=== PATIENT | female | born 1945 | race Caucasian/White ===

== ENCOUNTER → 2016-04-29 | Outpatient (CLI) | payer MEDICARE ==
[~2016-04-29] MED LIST: ASPI1TAB PO; ASPI81TA51 PO; AUGM500T34 PO; BENA25CA2 PO; BUDE3CAP PO; CALCTAB93 PO; CARV3.12 PO; CIPR500T3 PO; CO Q 10 PO; CO Q1CAP PO; COLA100C PO; CORE25TA PO; FISH1000 PO; FLAG500T PO; FLAX1000 PO; GLUC1CAP9 PO; IBUP600T26 OR; KETO10TAB PO; LIDO1DIS2 TD; LORTTAB5 PO; MELO7.5T6 PO; META48.54 PO; MULTLIQ7 PO; NORCOTAB PO; OMEG100011 PO; ONDA1TAB15 PO; POTA10CA PO; PRED25TA PO; PROBCAP14 PO; TUMS500C PO; VICO5TAB PO; VITA50003 PO; VITMTA PO
[2016-04-29 13:18] LABS: MEAN CORPUSCULAR HEMOGLOBIN 29.4 pg (27.0-33.0); MEAN CORPUSCULAR HGB CONC 32.7 g/dl (32.0-36.5); MEAN CORPUSCULAR VOLUME 89.9 fl (80.0-96.0); RED CELL DISTRIBUTION WIDTH 14.9 % (11.5-14.5); WHITE BLOOD COUNT 5.8 K/mm3 (4.0-10.0)
== END ==
LOC: M LAB 12:15
PROVIDERS: ATTEND Internal Medicine Gastroenterology
DX: R19.7 Diarrhea, unspecified (principal); K92.1 Melena

== ENCOUNTER → 2016-05-03 | Outpatient (CLI) | payer MEDICARE ==
[2016-05-03 13:15] LABS: MEAN CORPUSCULAR HEMOGLOBIN 29.4 pg (27.0-33.0); MEAN CORPUSCULAR HGB CONC 32.4 g/dl (32.0-36.5); RED CELL DISTRIBUTION WIDTH 15.8 % (11.5-14.5); WHITE BLOOD COUNT 4.8 K/mm3 (4.0-10.0)
== END ==
LOC: M LAB 12:40
PROVIDERS: ATTEND Internal Medicine Gastroenterology
DX: K92.1 Melena (principal); K52.9 Noninfective gastroenteritis and colitis, unspecified; D64.9 Anemia, unspecified

== ENCOUNTER → 2016-05-19 | Outpatient (REF) | payer MEDICARE ==
[2016-05-19 18:38] LABS: BASO % 0.4 % (0.0-1.0); EOS # 0.1 K/mm3 (0.0-0.50); EOS % 1.6 % (0.0-3.0); LARGE UNSTAINED CELL # 0.2 K/mm3 (0.0-0.4); LARGE UNSTAINED CELL % 2.7 % (0.0-4.0); LYMPH # 1.4 K/mm3 (1.5-4.5); LYMPH % 18.6 % (24.0-44.0); MEAN CORPUSCULAR HEMOGLOBIN 28.7 pg (27.0-33.0); MEAN CORPUSCULAR HGB CONC 31.7 g/dl (32.0-36.5); MEAN CORPUSCULAR VOLUME 90.5 fl (80.0-96.0); MONO # 0.3 K/mm3 (0.0-0.8); MONO % 4.1 % (0.0-5.0); NEUTROPHILS # 5.6 K/mm3 (1.8-7.7); NEUTROPHILS % 72.7 % (36.0-66.0); PLATELET COUNT, AUTOMATED 308 k/mm3 (150-450); RED CELL DISTRIBUTION WIDTH 14.6 % (11.5-14.5); WHITE BLOOD COUNT 7.8 K/mm3 (4.0-10.0)
[2016-05-19 18:50] LABS: ALBUMIN 3.7 GM/DL (3.2-5.2); ALBUMIN/GLOBULIN RATIO 0.97 (1.00-1.93); ALKALINE PHOSPHATASE 84 U/L (45-117); ALT/SGPT 18 U/L (12-78); ANION GAP 9 MEQ/L (8-16); AST/SGOT 16 U/L (15-37); BILIRUBIN,TOTAL 0.2 MG/DL (0.2-1.0); BLOOD UREA NITROGEN 13 MG/DL (7-18); CALCIUM LEVEL 8.6 MG/DL (8.8-10.2); CARBON DIOXIDE LEVEL 26 MEQ/L (21-32); CHLORIDE LEVEL 106 MEQ/L (98-107); CREATININE FOR GFR 0.82 MG/DL (0.55-1.02); FERRITIN 31 NG/ML (8-252); GLOMERULAR FILTRATION RATE > 60.0 (>45); GLUCOSE, FASTING 94 MG/DL (80-110); MAGNESIUM LEVEL 1.9 MG/DL (1.8-2.4); PERCENT SATURATION 7.8 % (13.2-37.4); POTASSIUM SERUM 4.2 MEQ/L (3.5-5.1); SODIUM LEVEL 141 MEQ/L (136-145); TOTAL IRON BINDING CAPACITY 361 UG/DL (250-450); TOTAL PROTEIN 7.5 GM/DL (6.4-8.2)
== END | disposition home or self-care (01) ==
LOC: M SFHCPLAZ 15:07
PROVIDERS: ATTEND Family Medicine
DX: D50.0 Iron deficiency anemia secondary to blood loss (chronic) (principal); I48.0 Paroxysmal atrial fibrillation
CPT/HCPCS: 36415; 80053; 82728; 83550; 83735; 85025; G0463

== ENCOUNTER → 2016-06-03 | Outpatient (CLI) | payer MEDICARE ==
--- NOTE | 2016-06-03 13:50 | REPMRS ---
Patient History The patient states she has not had a clinical breast exam in over a year. Patient has history of cervical cancer at age 33. No known family history of cancer. Digital Woman Screen Mammo: June 03, 2016 - Exam #: [id number] Bilateral CC and MLO view(s) were taken. Technologist: Sharda aVrgas, Technologist Prior study comparison: May 19, 2015, digital woman screen mammo performed at [facility] to [facility]. May 12, 2014, digital woman screen mammo performed at [facility] to [facility]. May 09, 2013, digital woman screen mammo performed at [facility] to [facility]. FINDINGS: There are scattered fibroglandular densities. There has been no change in the appearance of the mammogram from the prior studies. There is a mild amount of scattered fibroglandular density which is fairly symmetric. There is no interval development of dominant mass, architectural distortion, or clustered microcalcification suggestive of malignancy. ASSESSMENT: BI-RADS/ACR category 1 mammogram. Negative. Recommendation Routine screening mammogram in 1 year (for women over age 40). This mammogram was interpreted with the aid of an FDA-approved computer-aided dectection system. Electronically Signed By: Cliff Interiano MD 06/03/16 1695
== END ==
LOC: M WHC 12:39
PROVIDERS: ATTEND Family Medicine
DX: Z12.31 Encounter for screening mammogram for malignant neoplasm of breast (principal)

== ENCOUNTER → 2016-10-03 | Outpatient (REF) | payer MEDICARE ==
[~2016-10-03] MED LIST changes: +CO Q100C PO; -CO Q1CAP PO; -COLA100C PO; +COLA100C5 PO; -MELO7.5T6 PO; +MELO7.5T7 PO; -ONDA1TAB15 PO; +ONDA4TAB5 PO; +VITA1CAP40 PO; -VITA50003 PO
[2016-10-03 12:02] LABS: EOS # 0.1 K/mm3 (0.0-0.50); EOS % 1.5 % (0.0-3.0); LARGE UNSTAINED CELL # 0.1 K/mm3 (0.0-0.4); LARGE UNSTAINED CELL % 2.9 % (0.0-4.0); LYMPH # 1.4 K/mm3 (1.5-4.5); LYMPH % 27.9 % (24.0-44.0); MEAN CORPUSCULAR HEMOGLOBIN 31.8 pg (27.0-33.0); MEAN CORPUSCULAR VOLUME 93.5 fl (80.0-96.0); MONO # 0.3 K/mm3 (0.0-0.8); MONO % 5.8 % (0.0-5.0); NEUTROPHILS % 60.8 % (36.0-66.0); PLATELET COUNT, AUTOMATED 224 k/mm3 (150-450); RED CELL DISTRIBUTION WIDTH 12.8 % (11.5-14.5)
[2016-10-03 12:41] LABS: ALBUMIN 3.7 GM/DL (3.2-5.2); ALBUMIN/GLOBULIN RATIO 0.95 (1.00-1.93); ALKALINE PHOSPHATASE 78 U/L (45-117); ALT/SGPT 24 U/L (12-78); ANION GAP 6 MEQ/L (8-16); AST/SGOT 15 U/L (15-37); BILIRUBIN,TOTAL 0.4 MG/DL (0.2-1.0); BLOOD UREA NITROGEN 13 MG/DL (7-18); CALCIUM LEVEL 9.3 MG/DL (8.8-10.2); CARBON DIOXIDE LEVEL 27 MEQ/L (21-32); CHLORIDE LEVEL 107 MEQ/L (98-107); FERRITIN 130 NG/ML (8-252); GLOMERULAR FILTRATION RATE > 60.0 (>45); GLUCOSE, FASTING 95 MG/DL (80-110); MAGNESIUM LEVEL 1.9 MG/DL (1.8-2.4); PERCENT SATURATION 24.4 % (13.2-37.4); POTASSIUM SERUM 4.5 MEQ/L (3.5-5.1); SODIUM LEVEL 140 MEQ/L (136-145); TOTAL IRON BINDING CAPACITY 320 UG/DL (250-450); TOTAL PROTEIN 7.6 GM/DL (6.4-8.2)
== END ==
LOC: M SFHCPLAZ 10:34
PROVIDERS: ATTEND Family Medicine
DX: D50.0 Iron deficiency anemia secondary to blood loss (chronic) (principal); E55.9 Vitamin D deficiency, unspecified

== ENCOUNTER → 2017-06-01 | Outpatient (REF) | payer MEDICARE ==
[2017-06-01 12:59] LABS: BASO % 0.8 % (0.0-1.0); EOS # 0.1 10^3/uL (0.0-0.50); EOS % 2.3 % (0.0-3.0); HEMATOCRIT 38.6 % (36.0-47.0); HEMOGLOBIN 13.1 g/dl (12.0-16.0); LYMPH # 0.8 10^3/uL (1.5-4.5); LYMPH % 20.5 % (24.0-44.0); MEAN CORPUSCULAR HEMOGLOBIN 30.8 pg (27.0-33.0); MEAN CORPUSCULAR HGB CONC 33.9 g/dl (32.0-36.5); MEAN CORPUSCULAR VOLUME 90.8 fl (80.0-96.0); MONO # 0.5 10^3/uL (0.0-0.8); MONO % 11.5 % (0.0-5.0); NEUTROPHILS # 2.6 10^3/uL (1.8-7.7); NEUTROPHILS % 64.9 % (36.0-66.0); PLATELET COUNT, AUTOMATED 233 10^3/uL (150-450); RED BLOOD COUNT 4.25 10^6/uL (4.00-5.40); RED CELL DISTRIBUTION WIDTH 12.2 % (11.5-14.5)
[2017-06-01 13:19] LABS: ALBUMIN 3.7 GM/DL (3.2-5.2); ALBUMIN/GLOBULIN RATIO 1.16 (1.00-1.93); ALKALINE PHOSPHATASE 80 U/L (45-117); ALT/SGPT 27 U/L (12-78); ANION GAP 9 MEQ/L (8-16); AST/SGOT 16 U/L (7-37); BILIRUBIN,TOTAL 0.4 MG/DL (0.2-1.0); BLOOD UREA NITROGEN 13 MG/DL (7-18); CALCIUM LEVEL 8.4 MG/DL (8.8-10.2); CARBON DIOXIDE LEVEL 23 MEQ/L (21-32); CHLORIDE LEVEL 109 MEQ/L (98-107); CREATININE FOR GFR 0.74 MG/DL (0.55-1.30); FERRITIN 156 NG/ML (8-252); GLOMERULAR FILTRATION RATE > 60.0 (>45); GLUCOSE, FASTING 89 MG/DL (70-100); IRON (FE) 109 UG/DL (50-170); MAGNESIUM LEVEL 1.8 MG/DL (1.8-2.4); POTASSIUM SERUM 4.1 MEQ/L (3.5-5.1); SODIUM LEVEL 141 MEQ/L (136-145); TOTAL IRON BINDING CAPACITY 311 UG/DL (250-450); TOTAL PROTEIN 6.9 GM/DL (6.4-8.2)
[2017-06-01 13:25] LABS: PTH INTACT 63.7 PG/ML (18.5-88.0); TOTAL 25(OH) VITAMIN D 35.7 NG/ML (30.0-100.0)
== END ==
LOC: M SFHCPLAZ 10:39
DX: D50.0 Iron deficiency anemia secondary to blood loss (chronic) (principal); I48.0 Paroxysmal atrial fibrillation; E55.9 Vitamin D deficiency, unspecified
CPT/HCPCS: 83550

== ENCOUNTER → 2017-06-05 | Outpatient (CLI) | payer MEDICARE | LOC: M WHC 10:45 | DX: Z12.31 Encounter for screening mammogram for malignant neoplasm of breast (principal) | CPT/HCPCS: 77067 ==

== ENCOUNTER → 2017-08-17 | Outpatient (CLI) | payer MEDICARE ==
[2017-08-17 13:21] LABS: HEMATOCRIT 39.5 % (36.0-47.0); HEMOGLOBIN 13.5 g/dl (12.0-15.5); MEAN CORPUSCULAR HEMOGLOBIN 31.4 pg (27.0-33.0); MEAN CORPUSCULAR HGB CONC 34.2 g/dl (32.0-36.5); MEAN CORPUSCULAR VOLUME 91.9 fl (80.0-96.0); PLATELET COUNT, AUTOMATED 233 10^3/uL (150-450); RED CELL DISTRIBUTION WIDTH 12.2 % (11.5-14.5); WHITE BLOOD COUNT 4.3 10^3/uL (4.0-10.0)
[2017-08-17 14:16] LABS: C REACTIVE PROTEIN QUANTITATIV 0.54 MG/DL (0.00-0.30)
[2017-08-17 14:19] LABS: ERYTHROCYTE SEDIMENTATION RATE 21 mm/hr (0-30)
== END ==
LOC: M LAB 12:50
DX: K52.9 Noninfective gastroenteritis and colitis, unspecified (principal)
CPT/HCPCS: 86140

== ENCOUNTER → 2017-09-06 | Outpatient (CLI) | payer MEDICARE ==
[2017-09-06 10:43] LABS: HEMATOCRIT 39.1 % (36.0-47.0); HEMOGLOBIN 13.3 g/dl (12.0-15.5); MEAN CORPUSCULAR HEMOGLOBIN 31.1 pg (27.0-33.0); MEAN CORPUSCULAR VOLUME 91.4 fl (80.0-96.0); PLATELET COUNT, AUTOMATED 213 10^3/uL (150-450); RED BLOOD COUNT 4.28 10^6/uL (4.00-5.40); RED CELL DISTRIBUTION WIDTH 12.2 % (11.5-14.5); WHITE BLOOD COUNT 4.1 10^3/uL (4.0-10.0)
[2017-09-06 11:03] LABS: ALBUMIN 3.9 GM/DL (3.2-5.2); ALBUMIN/GLOBULIN RATIO 1.15 (1.00-1.93); ALKALINE PHOSPHATASE 83 U/L (45-117); ALT/SGPT 23 U/L (12-78); ANION GAP 8 MEQ/L (8-16); AST/SGOT 16 U/L (7-37); BILIRUBIN,TOTAL 0.3 MG/DL (0.2-1.0); BLOOD UREA NITROGEN 16 MG/DL (7-18); CALCIUM LEVEL 8.2 MG/DL (8.8-10.2); CARBON DIOXIDE LEVEL 23 MEQ/L (21-32); CHLORIDE LEVEL 111 MEQ/L (98-107); CREATININE FOR GFR 0.66 MG/DL (0.55-1.30); GLOMERULAR FILTRATION RATE > 60.0 (>39); GLUCOSE, FASTING 97 MG/DL (70-100); POTASSIUM SERUM 4.2 MEQ/L (3.5-5.1); SODIUM LEVEL 142 MEQ/L (136-145); TOTAL PROTEIN 7.3 GM/DL (6.4-8.2)
[2017-09-06 11:05] LABS: INR 0.96; PROTHROMBIN TIME 12.9 SECONDS (12.4-14.5)
[2017-09-06 11:43] LABS: ERYTHROCYTE SEDIMENTATION RATE 19 mm/hr (0-30)
== END ==
LOC: M ADMPAT 09:08
DX: Z01.818 Encounter for other preprocedural examination (principal); M16.11 Unilateral primary osteoarthritis, right hip; Z79.899 Other long term (current) drug therapy
CPT/HCPCS: 71046

== ENCOUNTER 2017-09-25 05:46 | Inpatient (IN) | payer MEDICARE ==
[2017-09-25] MEDS: LR 1,000 ML IV ×4 (06:50→20:45)
[2017-09-25] MEDS ORDERED: PROPOFOL 200 MG/20 ML VIAL As Ordered (08:11)
[2017-09-25] MEDS ORDERED: BUPIVACAINE/DEXTROSE 0.75% 2 ML AMP As Ordered (08:11)
[2017-09-25] MEDS ORDERED: fentaNYL 100 MCG/2 ML INJECTION (J3010) As Ordered (08:11)
[2017-09-25] MEDS ORDERED: MIDAZOLAM INJ 2 MG/2 ML VIAL (J2250) As Ordered (08:11)
[2017-09-25] MEDS ORDERED: ONDANSETRON 4MG/2ML VIAL (J2405) As Ordered (08:13)
[2017-09-25] MEDS ORDERED: dexameTHASONE 4 MG/ML 1ML VIAL (J1100) As Ordered (08:13)
[2017-09-25] MEDS ORDERED: ePHEDrine SULFATE 25 MG/5 ML(5MG/ML) SYRINGE As Ordered (08:15)
[2017-09-25] MEDS: EPINEPHrine INJ 1 MG/ML 1ML AMP As Ordered (08:29)
[2017-09-25] MEDS: ceFAZolin 1GM INJ (J0690 PER 500MG) As Ordered (08:29)
[2017-09-25] MEDS: TRANEXAMIC ACID 100 MG/ML 10ML VIAL As Ordered (08:30)
[2017-09-25] MEDS ORDERED: MORPHINE 1MG/ML IN 0.9% NACL 100ML IV BAG As Ordered (09:31)
[2017-09-25] MEDS: PERCOCET 5MG/325MG TAB PO ×4 (09:40→20:37)
[2017-09-25] MEDS ORDERED: NALBUPHINE HCL 10 MG/ML AMP (J2300) IV (09:45)
[2017-09-25] MEDS ORDERED: ONDANSETRON 4MG/2ML VIAL (J2405) IV ×2 (09:45)
[2017-09-25] MEDS ORDERED: ACETAMINOPHEN TAB 650MG DOSE (2X325MG) PO (09:45)
[2017-09-25] MEDS ORDERED: diphenhydrAMINE INJ 50MG/ML VIAL (J1200) IV (09:45)
[2017-09-25] MEDS ORDERED: NALOXONE INJ 0.4 MG/1 ML VIAL (J2310) IV (09:45)
[2017-09-25] MEDS ORDERED: HYDROMORPHONE HCL 0.5 MG/ 0.5 ML SYRINGE (J1170 PER 1) IV (09:45)
[2017-09-25] MEDS ORDERED: MORPHINE 1MG/ML IN 0.9% NACL 100ML IV BAG IV (09:45)
[2017-09-25] MEDS ORDERED: EPIDURAL/PCA KEYS XX (09:45)
[2017-09-25] MEDS ORDERED: FLEET ENEMA PR (09:45)
[2017-09-25] MEDS: fentaNYL 100 MCG/2 ML INJECTION (J3010) IV ×4 (10:20→10:40)
[2017-09-25] MEDS: ONDANSETRON 4MG/2ML VIAL (J2405) IV ×3 (12:46→21:20)
[2017-09-25] MEDS ORDERED: PERCOCET 5MG/325MG TAB PO (15:00)
[2017-09-25 17:56] LABS: BEDSIDE GLUCOSE 149 MG/DL (83-110)
[2017-09-25] MEDS: CARVedilol 3.125 MG TAB PO (21:13)
[2017-09-26] MEDS: PERCOCET 5MG/325MG TAB PO (00:37)
[2017-09-26] MEDS: ONDANSETRON 4MG/2ML VIAL (J2405) IV (02:06)
[2017-09-26] MEDS: traMADol 50 MG TAB PO ×3 (06:39→20:20)
[2017-09-26 07:04] LABS: HEMATOCRIT 32.7 % (36.0-47.0); HEMOGLOBIN 11.2 g/dl (12.0-15.5); MEAN CORPUSCULAR HEMOGLOBIN 30.9 pg (27.0-33.0); MEAN CORPUSCULAR HGB CONC 34.3 g/dl (32.0-36.5); MEAN CORPUSCULAR VOLUME 90.1 fl (80.0-96.0); PLATELET COUNT, AUTOMATED 187 10^3/uL (150-450); RED BLOOD COUNT 3.63 10^6/uL (4.00-5.40); WHITE BLOOD COUNT 5.5 10^3/uL (4.0-10.0)
[2017-09-26] MEDS: RIVAROXABAN 10 MG TAB (XARELTO) PO (08:50)
[2017-09-26] MEDS: CARVedilol 3.125 MG TAB PO ×2 (08:53→20:18)
[2017-09-26] MEDS: MOM 30ML SUSPENSION UDC PO (09:00)
[2017-09-26] MEDS: SENOKOT S TAB PO ×2 (09:00→20:18)
[2017-09-26] MEDS: MIRALAX *UNIT DOSE* 17GM PACKET PO (09:00)
[2017-09-26] MEDS: ACETAMINOPHEN 500 MG TAB PO (09:49)
[2017-09-26] MEDS: ONDANSETRON 4 MG TAB (S0181) PO (13:43)
[2017-09-27] MEDS: traMADol 50 MG TAB PO ×2 (02:49→10:02)
[2017-09-27 07:15] LABS: HEMATOCRIT 31.4 % (36.0-47.0); HEMOGLOBIN 10.7 g/dl (12.0-15.5); MEAN CORPUSCULAR HEMOGLOBIN 31.1 pg (27.0-33.0); MEAN CORPUSCULAR HGB CONC 34.1 g/dl (32.0-36.5); MEAN CORPUSCULAR VOLUME 91.3 fl (80.0-96.0); PLATELET COUNT, AUTOMATED 169 10^3/uL (150-450); RED BLOOD COUNT 3.44 10^6/uL (4.00-5.40); RED CELL DISTRIBUTION WIDTH 12.1 % (11.5-14.5); WHITE BLOOD COUNT 5.4 10^3/uL (4.0-10.0)
[2017-09-27] MEDS: RIVAROXABAN 10 MG TAB (XARELTO) PO (08:45)
[2017-09-27] MEDS: MIRALAX *UNIT DOSE* 17GM PACKET PO (08:48)
[2017-09-27] MEDS: MOM 30ML SUSPENSION UDC PO (08:48)
[2017-09-27] MEDS: CARVedilol 3.125 MG TAB PO (08:48)
[2017-09-27] MEDS: SENOKOT S TAB PO (08:49)
== END 2017-09-27 14:45 | disposition home or self-care (01) | DRG 470 ==
LOC: M OR 05:46 → M MS5PR 12:00
PROVIDERS: Orthopaedic Surgery
PROC: 0SR902A Replacement of Right Hip Joint with Metal on Polyethylene Synthetic Substitute, Uncemented, Open Approach (ICD-10-PCS; principal; 2017-09-25 07:30)
DX: M16.11 Unilateral primary osteoarthritis, right hip (principal); K51.90 Ulcerative colitis, unspecified, without complications; I10 Essential (primary) hypertension; E78.5 Hyperlipidemia, unspecified; I48.0 Paroxysmal atrial fibrillation; Z98.49 Cataract extraction status, unspecified eye; Z87.891 Personal history of nicotine dependence; Z79.899 Other long term (current) drug therapy

== ENCOUNTER → 2017-10-12 | Outpatient (REF) | payer MEDICARE ==
[2017-10-12 13:19] LABS: BASO % 0.4 % (0.0-1.0); EOS # 0.1 10^3/uL (0.0-0.50); EOS % 1.8 % (0.0-3.0); HEMATOCRIT 34.9 % (36.0-47.0); HEMOGLOBIN 11.4 g/dl (12.0-15.5); IMMATURE GRANULOCYTE % 0.4 % (0-3.0); LYMPH # 1.2 10^3/uL (1.5-4.5); LYMPH % 21.8 % (24.0-44.0); MEAN CORPUSCULAR HEMOGLOBIN 30.9 pg (27.0-33.0); MEAN CORPUSCULAR HGB CONC 32.7 g/dl (32.0-36.5); MEAN CORPUSCULAR VOLUME 94.6 fl (80.0-96.0); MONO # 0.5 10^3/uL (0.0-0.8); MONO % 9.2 % (0.0-5.0); NEUTROPHILS # 3.7 10^3/uL (1.8-7.7); NEUTROPHILS % 66.4 % (36.0-66.0); PLATELET COUNT, AUTOMATED 439 10^3/uL (150-450); RED BLOOD COUNT 3.69 10^6/uL (4.00-5.40); RETIC HEMOGLOBIN EQUIVALENT 34.9 pg (24-36); RETICULOCYTE # 94.8 10^9/L (17-77); RETICULOCYTE % 2.6 % (0.5-1.5); WHITE BLOOD COUNT 5.6 10^3/uL (4.0-10.0)
[2017-10-12 14:12] LABS: ALBUMIN 3.3 GM/DL (3.2-5.2); ALKALINE PHOSPHATASE 94 U/L (45-117); ALT/SGPT 18 U/L (12-78); ANION GAP 8 MEQ/L (8-16); AST/SGOT 15 U/L (7-37); BILIRUBIN,TOTAL 0.3 MG/DL (0.2-1.0); BLOOD UREA NITROGEN 10 MG/DL (7-18); C REACTIVE PROTEIN QUANTITATIV 2.73 MG/DL (0.00-0.30); CALCIUM LEVEL 8.5 MG/DL (8.8-10.2); CARBON DIOXIDE LEVEL 27 MEQ/L (21-32); CHLORIDE LEVEL 107 MEQ/L (98-107); CHOLESTEROL LEVEL 168 MG/DL (<200); CREATININE FOR GFR 0.58 MG/DL (0.55-1.30); FREE T4 1.13 NG/DL (0.76-1.46); GLOMERULAR FILTRATION RATE > 60.0 (>39); GLUCOSE, FASTING 85 MG/DL (70-100); HDL CHOLESTEROL 60 MG/DL (>40); LDL CHOLESTEROL 75.6 MG/DL (<100); MAGNESIUM LEVEL 1.9 MG/DL (1.8-2.4); NON-HDL-C 108 MG/DL; POTASSIUM SERUM 4.3 MEQ/L (3.5-5.1); SODIUM LEVEL 142 MEQ/L (136-145); TOTAL PROTEIN 6.6 GM/DL (6.4-8.2); TRIGLYCERIDES LEVEL 162 MG/DL (<150)
[2017-10-12 14:17] LABS: PTH INTACT 65.7 PG/ML (18.5-88.0); TOTAL 25(OH) VITAMIN D 50.3 NG/ML (30.0-100.0)
== END ==
LOC: M SFHCPLAZ 11:05
DX: D50.0 Iron deficiency anemia secondary to blood loss (chronic) (principal); E55.9 Vitamin D deficiency, unspecified; I10 Essential (primary) hypertension
CPT/HCPCS: 83735

== ENCOUNTER → 2018-04-09 | Outpatient (REF) | payer MEDICARE ==
[~2018-04-09] MED LIST changes: +APRI0.37 PO; +CELE1CAP4 PO; -FLAX1000 PO; +FLAX10008 PO; +HYDR-3713 PO; +IRONCAP2 PO; +KLOR10TA76 PO; +OMEP40CA2 PO; -POTA10CA PO; +POTA20TA4 PO; +TRAM50TA2 PO; -VITA1CAP40 PO; +VITA50005 PO; +XARE10TA PO
[2018-04-09 16:01] LABS: ALBUMIN 3.9 GM/DL (3.2-5.2); ALT/SGPT 22 U/L (12-78); BILIRUBIN,TOTAL 0.3 MG/DL (0.2-1.0); BLOOD UREA NITROGEN 20 MG/DL (7-18); CALCIUM LEVEL 8.8 MG/DL (8.8-10.2); CARBON DIOXIDE LEVEL 25 MEQ/L (21-32); CHLORIDE LEVEL 107 MEQ/L (98-107); CREATININE FOR GFR 0.69 MG/DL (0.55-1.30); GLOMERULAR FILTRATION RATE > 60.0 (>39); GLUCOSE, FASTING 73 MG/DL (70-100); MAGNESIUM LEVEL 1.9 MG/DL (1.8-2.4); POTASSIUM SERUM 4.3 MEQ/L (3.5-5.1); SODIUM LEVEL 140 MEQ/L (136-145); TOTAL PROTEIN 7.3 GM/DL (6.4-8.2)
[2018-04-09 16:03] LABS: BASO % 0.4 % (0.0-1.0); EOS # 0.1 10^3/uL (0.0-0.50); EOS % 2.3 % (0.0-3.0); HEMATOCRIT 41.3 % (36.0-47.0); HEMOGLOBIN 13.6 g/dl (12.0-15.5); LYMPH # 1.2 10^3/uL (1.5-4.5); LYMPH % 22.6 % (24.0-44.0); MEAN CORPUSCULAR HEMOGLOBIN 31.6 pg (27.0-33.0); MEAN CORPUSCULAR HGB CONC 32.9 g/dl (32.0-36.5); MEAN CORPUSCULAR VOLUME 95.8 fl (80.0-96.0); MONO # 0.4 10^3/uL (0.0-0.8); MONO % 8.2 % (0.0-5.0); NEUTROPHILS # 3.5 10^3/uL (1.8-7.7); NEUTROPHILS % 66.3 % (36.0-66.0); PLATELET COUNT, AUTOMATED 236 10^3/uL (150-450); RED BLOOD COUNT 4.31 10^6/uL (4.00-5.40); WHITE BLOOD COUNT 5.2 10^3/uL (4.0-10.0)
[2018-04-09 16:18] LABS: HEMOGLOBIN A1c 5.1 %
== END ==
LOC: M SFHCPLAZ 12:45
PROVIDERS: ATTEND Family Medicine
DX: D50.0 Iron deficiency anemia secondary to blood loss (chronic) (principal); I10 Essential (primary) hypertension; Z79.899 Other long term (current) drug therapy

== ENCOUNTER → 2018-05-23 | Outpatient (CLI) | payer MEDICARE ==
[2018-05-23 09:37] LABS: C REACTIVE PROTEIN QUANTITATIV 0.54 MG/DL (0.00-0.30); MAGNESIUM LEVEL 2.1 MG/DL (1.8-2.4)
== END ==
LOC: M LAB 08:56
PROVIDERS: ATTEND Physician Assistant
DX: K21.9 Gastro-esophageal reflux disease without esophagitis (principal); K52.9 Noninfective gastroenteritis and colitis, unspecified; E55.9 Vitamin D deficiency, unspecified

== ENCOUNTER → 2018-06-15 | Outpatient (CLI) | payer MEDICARE ==
--- NOTE | 2018-06-15 12:47 | REP ---
DIAGNOSTIC MAMMOGRAM RIGHT BREAST: Multiple magnification views of the right breast are performed. There are multiple pleomorphic microcalcifications of varying sizes and shapes in the posterolateral right breast which are increased since prior studies. These are in a somewhat linear configuration. These appear somewhat suspicious. I would recommend stereotactic biopsy. IMPRESSION: ACR 4 suspicious. Increased pleomorphic microcalcifications clustered in a somewhat linear fashion in the posterolateral right breast. Stereotactic biopsy is recommended. This mammogram was interpreted with the aid of an FDA-approved computer-aided detection system. A. Negative x-ray reports should not delay biopsy if a dominant or clinically suspicious mass is present. B. Four to eight percent of cancers are not identified by x-ray. C. Adenosis and dense breasts may obscure an underlying neoplasm. The patient letter being requested is M4. Electronically Signed by Campos Redmond MD 06/15/2018 03:37 P
== END ==
LOC: M RAD 11:26
PROVIDERS: ATTEND Family Medicine
DX: Z12.31 Encounter for screening mammogram for malignant neoplasm of breast (principal); R92.0 Mammographic microcalcification found on diagnostic imaging of breast

== ENCOUNTER → 2018-06-19 | Outpatient (REF) | payer MEDICARE ==
[2018-06-19 12:50] LABS: ALBUMIN 4.1 GM/DL (3.2-5.2); ALT/SGPT 20 U/L (12-78); BILIRUBIN,TOTAL 0.3 MG/DL (0.2-1.0); BLOOD UREA NITROGEN 15 MG/DL (7-18); CALCIUM LEVEL 8.9 MG/DL (8.8-10.2); CARBON DIOXIDE LEVEL 22 MEQ/L (21-32); CHLORIDE LEVEL 109 MEQ/L (98-107); CREATININE FOR GFR 0.73 MG/DL (0.55-1.30); GLOMERULAR FILTRATION RATE > 60.0 (>39); GLUCOSE, FASTING 89 MG/DL (70-100); POTASSIUM SERUM 4.2 MEQ/L (3.5-5.1); SODIUM LEVEL 140 MEQ/L (136-145); TOTAL PROTEIN 7.3 GM/DL (6.4-8.2)
== END ==
LOC: M SFHCPLAZ 09:40
PROVIDERS: ATTEND Physician Assistant Medical
DX: R92.8 Other abnormal and inconclusive findings on diagnostic imaging of breast (principal)

== ENCOUNTER → 2018-09-04 | Outpatient (REF) | payer MEDICARE ==
[~2018-09-04] MED LIST changes: -ASPI1TAB PO; +ASPI81TA26 PO; +HYDR-3715 PO; -NORCOTAB PO
[2018-09-04 12:36] LABS: BASO % 0.9 % (0.0-1.0); EOS # 0.3 10^3/uL (0.0-0.50); EOS % 6.7 % (0.0-3.0); HEMATOCRIT 41.1 % (36.0-47.0); HEMOGLOBIN 13.7 g/dl (12.0-15.5); LYMPH # 1.2 10^3/uL (1.5-4.5); LYMPH % 25.7 % (24.0-44.0); MEAN CORPUSCULAR HEMOGLOBIN 30.8 pg (27.0-33.0); MEAN CORPUSCULAR HGB CONC 33.3 g/dl (32.0-36.5); MEAN CORPUSCULAR VOLUME 92.4 fl (80.0-96.0); MONO # 0.5 10^3/uL (0.0-0.8); MONO % 9.8 % (0.0-5.0); NEUTROPHILS # 2.6 10^3/uL (1.8-7.7); NEUTROPHILS % 56.7 % (36.0-66.0); PLATELET COUNT, AUTOMATED 243 10^3/uL (150-450); RED BLOOD COUNT 4.45 10^6/uL (4.00-5.40); WHITE BLOOD COUNT 4.6 10^3/uL (4.0-10.0)
[2018-09-04 13:13] LABS: ALBUMIN 3.8 GM/DL (3.2-5.2); ALT/SGPT 30 U/L (12-78); BILIRUBIN,TOTAL 0.3 MG/DL (0.2-1.0); BLOOD UREA NITROGEN 11 MG/DL (7-18); CARBON DIOXIDE LEVEL 22 MEQ/L (21-32); CHLORIDE LEVEL 109 MEQ/L (98-107); FREE T4 0.95 NG/DL (0.76-1.46); GLOMERULAR FILTRATION RATE > 60.0 (>39); GLUCOSE, FASTING 91 MG/DL (70-100); POTASSIUM SERUM 4.2 MEQ/L (3.5-5.1); SODIUM LEVEL 139 MEQ/L (136-145); TOTAL PROTEIN 7.4 GM/DL (6.4-8.2)
[2018-09-06 11:10] LABS: ALBUMIN 4.36 GM/DL (3.29-5.55); ALBUMIN % 58.9 % (55.8-66.1); ALPHA-1-GLOBULIN % 4.6 % (2.9-4.9); ALPHA-1-GLOBULINS 0.34 GM/DL (0.17-0.41); ALPHA-2-GLOBULINS 0.78 GM/DL (0.42-0.99); ALPHA-2-GLOBULINS % 10.6 % (7.1-11.8); BETA-1-GLOBULINS 0.44 GM/DL (0.28-0.60); BETA-2-GLOBULINS 0.38 GM/DL (0.19-0.55); BETA-2-GLOBULINS % 5.2 % (3.2-6.5); GAMMA GLOBULIN % 14.7 % (11.1-18.8); GAMMA GLOBULINS 1.09 GM/DL (0.65-1.58)
== END ==
LOC: M SFHCPLAZ 10:53
PROVIDERS: ATTEND Family Medicine
DX: D50.0 Iron deficiency anemia secondary to blood loss (chronic) (principal); I48.0 Paroxysmal atrial fibrillation; I10 Essential (primary) hypertension

== ENCOUNTER → 2018-10-02 | Outpatient (CLI) | payer MEDICARE ==
--- NOTE | 2018-10-02 15:16 | REP ---
Soft-tissue CT study of the neck with IV contrast: History: Right neck mass. Question branchial cleft cyst. CT contrast dose: 75 mL of Isovue 370. CT findings: A opaque BB is affixed to the skin at the site below the palpable lump. There is an oval-shaped heterogeneous dermal lesion lateral to the right parotid gland above the level of the BB marker. This measures 16 mm anteroposterior by 12 mm medial to lateral by 22 mm cranial to caudal. It is characterized by a central pattern of increased attenuation surrounded by a border of lower attenuation. Its internal margin appears to show enhancement and is slightly higher attenuation. The lesion is felt most compatible with a sebaceous cyst with central dense proteinaceous content. This is nonspecific. There is no evidence of adenopathy. Parotid gland itself is intact and symmetric. The left parotid is unremarkable. There is some accessory parotid salivary tissue lateral to each masseter muscle. The submandibular glands are normal and symmetric. Normal cervical lymph nodes are present. Thyroid lobes are unremarkable. No glottic or subglottic airway lesion is seen. Epiglottis is unremarkable. Floor of mouth and tonsillar and peritonsillar soft tissues are unremarkable. There is no evidence of significant paranasal sinus disease. There is however degenerative spondylosis with fairly well formed osteophytes at multiple cervical levels. No bony destructive lesion is appreciated. Impression: 22 mm dermal lesion in the right neck soft tissues lateral to the right parotid gland. This is nonspecific but felt to be most compatible with sebaceous cyst. Electronically Signed by Barrera Interiano MD 10/02/2018 04:55 P
== END ==
LOC: M RAD 13:35
PROVIDERS: ATTEND Otolaryngology
DX: R22.1 Localized swelling, mass and lump, neck (principal)

== ENCOUNTER → 2018-11-01 | Outpatient (CLI) | payer MEDICARE ==
[2018-11-01 13:51] LABS: BASO % 0.7 % (0.0-1.0); EOS # 0.2 10^3/uL (0.0-0.50); EOS % 2.5 % (0.0-3.0); HEMATOCRIT 42.2 % (36.0-47.0); HEMOGLOBIN 14.2 g/dl (12.0-15.5); LYMPH # 1.4 10^3/uL (1.5-4.5); LYMPH % 23.1 % (24.0-44.0); MEAN CORPUSCULAR HEMOGLOBIN 31.4 pg (27.0-33.0); MEAN CORPUSCULAR HGB CONC 33.6 g/dl (32.0-36.5); MEAN CORPUSCULAR VOLUME 93.4 fl (80.0-96.0); MONO # 0.5 10^3/uL (0.0-0.8); MONO % 8.9 % (0.0-5.0); NEUTROPHILS # 3.8 10^3/uL (1.8-7.7); NEUTROPHILS % 64.6 % (36.0-66.0); PLATELET COUNT, AUTOMATED 266 10^3/uL (150-450); RED BLOOD COUNT 4.52 10^6/uL (4.00-5.40); WHITE BLOOD COUNT 5.9 10^3/uL (4.0-10.0)
[2018-11-01 14:05] LABS: INR 1.03; PROTHROMBIN TIME 13.2 SECONDS (11.8-14.0)
[2018-11-01 14:06] LABS: PARTIAL THROMBOPLASTIN TIME 35.2 SECONDS (25.0-38.4)
[2018-11-01 14:20] LABS: ALBUMIN 4.3 GM/DL (3.2-5.2); ALT/SGPT 23 U/L (12-78); BILIRUBIN,TOTAL 0.3 MG/DL (0.2-1.0); BLOOD UREA NITROGEN 11 MG/DL (7-18); CALCIUM LEVEL 9.2 MG/DL (8.8-10.2); CARBON DIOXIDE LEVEL 25 MEQ/L (21-32); CHLORIDE LEVEL 106 MEQ/L (98-107); CREATININE FOR GFR 0.82 MG/DL (0.55-1.30); GLOMERULAR FILTRATION RATE > 60.0 (>39); GLUCOSE, FASTING 86 MG/DL (70-100); POTASSIUM SERUM 4.6 MEQ/L (3.5-5.1); SODIUM LEVEL 139 MEQ/L (136-145); TOTAL PROTEIN 7.8 GM/DL (6.4-8.2)
== END ==
LOC: M LAB 12:29
PROVIDERS: ATTEND Family Medicine
DX: Z01.818 Encounter for other preprocedural examination (principal); Q18.0 Sinus, fistula and cyst of branchial cleft; I48.0 Paroxysmal atrial fibrillation
CPT/HCPCS: 36415; 80053; 85025; 85610; 85730; 93005; G0463

== ENCOUNTER → 2018-11-27 | Outpatient (CLI) | payer MEDICARE | LOC: M LAB 12:19 | PROVIDERS: ATTEND Physician Assistant | DX: R21 Rash and other nonspecific skin eruption (principal) ==

== ENCOUNTER → 2019-02-25 | Outpatient (CLI) | payer MEDICARE ==
[~2019-02-25] MED LIST changes: -OMEP40CA2 PO; +OMEP40CA97 PO
[2019-02-25 14:11] LABS: BASO % 0.4 % (0.0-1.0); EOS # 0.1 10^3/uL (0.0-0.5); EOS % 1.6 % (0.0-3.0); HEMATOCRIT 39.1 % (36.0-47.0); LYMPH # 1.1 10^3/uL (1.5-5.0); MEAN CORPUSCULAR HEMOGLOBIN 31.8 pg (27.0-33.0); MEAN CORPUSCULAR HGB CONC 33.2 g/dl (32.0-36.5); MEAN CORPUSCULAR VOLUME 95.6 fl (80.0-96.0); MONO # 0.5 10^3/uL (0.0-0.8); MONO % 10.6 % (0.0-5.0); NEUTROPHILS # 3.3 10^3/uL (1.5-8.5); NEUTROPHILS % 65.2 % (36.0-66.0); PLATELET COUNT, AUTOMATED 205 10^3/uL (150-450); RED BLOOD COUNT 4.09 10^6/uL (4.00-5.40)
[2019-02-25 14:24] LABS: INR 1.04; PROTHROMBIN TIME 13.4 SECONDS (11.8-14.0)
[2019-02-25 14:35] LABS: ALBUMIN 3.7 GM/DL (3.2-5.2); ALT/SGPT 27 U/L (12-78); BILIRUBIN,TOTAL 0.3 MG/DL (0.2-1.0); BLOOD UREA NITROGEN 21 MG/DL (7-18); CALCIUM LEVEL 8.9 MG/DL (8.8-10.2); CARBON DIOXIDE LEVEL 25 MEQ/L (21-32); CHLORIDE LEVEL 108 MEQ/L (98-107); CREATININE FOR GFR 0.66 MG/DL (0.55-1.30); GLOMERULAR FILTRATION RATE > 60.0 (>39); GLUCOSE, FASTING 96 MG/DL (70-100); POTASSIUM SERUM 4.4 MEQ/L (3.5-5.1); SODIUM LEVEL 138 MEQ/L (136-145); TOTAL PROTEIN 7.2 GM/DL (6.4-8.2)
== END ==
LOC: M PLALAB 11:42
PROVIDERS: ATTEND Family Medicine
DX: Z01.818 Encounter for other preprocedural examination (principal)

== ENCOUNTER → 2019-07-29 | Outpatient (REF) | payer MEDICARE, BC ==
[~2019-07-29] MED LIST changes: +ONDA-83 PO; -ONDA4TAB5 PO
[2019-07-29 13:53] LABS: BASO % 0.2 % (0.0-1.0); EOS # 0.1 10^3/uL (0.0-0.5); EOS % 2.7 % (0.0-3.0); HEMATOCRIT 40.9 % (36.0-47.0); HEMOGLOBIN 13.5 g/dl (12.0-15.5); LYMPH # 1.2 10^3/uL (1.5-5.0); MEAN CORPUSCULAR HEMOGLOBIN 31.3 pg (27.0-33.0); MEAN CORPUSCULAR VOLUME 94.7 fl (80.0-96.0); MONO # 0.5 10^3/uL (0.0-0.8); MONO % 9.6 % (0.0-5.0); NEUTROPHILS % 63.3 % (36.0-66.0); PLATELET COUNT, AUTOMATED 223 10^3/uL (150-450); RED BLOOD COUNT 4.32 10^6/uL (4.00-5.40); WHITE BLOOD COUNT 4.8 10^3/uL (4.0-10.0)
[2019-07-29 14:19] LABS: ALBUMIN 3.8 GM/DL (3.2-5.2); ALT/SGPT 24 U/L (12-78); BILIRUBIN,TOTAL 0.5 MG/DL (0.2-1.0); BLOOD UREA NITROGEN 20 MG/DL (7-18); C REACTIVE PROTEIN QUANTITATIV 0.65 MG/DL (0.00-0.30); CALCIUM LEVEL 8.5 MG/DL (8.8-10.2); CARBON DIOXIDE LEVEL 25 MEQ/L (21-32); CHLORIDE LEVEL 106 MEQ/L (98-107); CHOLESTEROL LEVEL 223 MG/DL (<200); CHOLESTEROL RISK RATIO 2.858 (<5); CREATININE FOR GFR 0.73 MG/DL (0.55-1.30); GLOMERULAR FILTRATION RATE > 60.0 (>39); GLUCOSE, FASTING 93 MG/DL (70-100); HDL CHOLESTEROL 78 MG/DL (>40); LDL CHOLESTEROL 107 MG/DL (<100); NON-HDL-C 145 MG/DL; POTASSIUM SERUM 4.3 MEQ/L (3.5-5.1); SODIUM LEVEL 138 MEQ/L (136-145); TOTAL PROTEIN 7.3 GM/DL (6.4-8.2); TRIGLYCERIDES LEVEL 190 MG/DL (<150)
[2019-07-29 14:24] LABS: PTH INTACT 80.6 PG/ML (18.5-88.0); TOTAL 25(OH) VITAMIN D 35.1 NG/ML (30.0-100.0)
[2019-07-29 15:01] LABS: HEMOGLOBIN A1c 5.4 %
== END ==
LOC: M SFHCPLAZ 12:03
PROVIDERS: ATTEND Family Medicine
DX: D50.0 Iron deficiency anemia secondary to blood loss (chronic) (principal); E55.9 Vitamin D deficiency, unspecified; E78.2 Mixed hyperlipidemia; I10 Essential (primary) hypertension; M17.0 Bilateral primary osteoarthritis of knee; Z79.899 Other long term (current) drug therapy

== ENCOUNTER → 2019-08-28 | Outpatient (CLI) | payer MEDICARE ==
--- NOTE | 2019-08-28 14:45 | REPMRS ---
Patient History The patient states she has not had a clinical breast exam in over a year. No known family history of cancer. Benign radio exam breast specimen of the right breast, June 29, 2018. Benign stereotatic loc for ea lesion of the right breast, June 29, 2018. 3D TOMOSYNTHESIS WAS PERFORMED. The Eleonora Kent lifetime risk for breast cancer is 3.7%. VOLPARA DENSITY B. Digital Woman Screen Mammo: August 28, 2019 - Exam #: [id number] Bilateral CC and MLO view(s) were taken. Technologist: Nadege Holden, Technologist Prior study comparison: June 15, 2018, right breast digital mammo diagnostic unilateral, performed at [facility]. June 08, 2018, bilateral digital woman screen mammo performed at [facility]. FINDINGS: The breast tissue is heterogeneously dense. This may lower the sensitivity of mammography. There has been no change in the appearance of the mammogram from the prior studies. There is a moderate amount of residual fibroglandular tissue which is fairly symmetric. There is no interval development of dominant mass, areas of architectural distortion, or clustered microcalcification typical of malignancy. Assessment: BI-RADS/ACR category 1 mammogram. Negative Mammogram. Recommendation Routine screening mammogram in 1 year (for women over age 40). This mammogram was interpreted with the aid of an FDA-approved computer-aided dectection system. Electronically Signed By: Campos Redmond MD 08/28/19 1205
== END ==
LOC: M WHC 12:12
PROVIDERS: ATTEND Family Medicine
DX: Z12.31 Encounter for screening mammogram for malignant neoplasm of breast (principal)

== ENCOUNTER 2020-01-18 22:58 | Inpatient (IN) | payer MEDICARE ==
[~2020-01-18] VITALS: Ht 162.6 cm; Wt 73.4 kg
[2020-01-18 23:24] LABS: BASO % 0.2 % (0.0-1.0); EOS % 0.2 % (0.0-3.0); HEMATOCRIT 38.9 % (36.0-47.0); HEMOGLOBIN 12.4 g/dl (12.0-15.5); LYMPH # 0.4 10^3/uL (1.5-5.0); LYMPH % 4.4 % (24.0-44.0); MEAN CORPUSCULAR HEMOGLOBIN 30.4 pg (27.0-33.0); MEAN CORPUSCULAR HGB CONC 31.9 g/dl (32.0-36.5); MEAN CORPUSCULAR VOLUME 95.3 fl (80.0-96.0); MONO # 0.4 10^3/uL (0.0-0.8); MONO % 4.2 % (0.0-5.0); NEUTROPHILS # 8.7 10^3/uL (1.5-8.5); NEUTROPHILS % 90.6 % (36.0-66.0); PLATELET COUNT, AUTOMATED 213 10^3/uL (150-450); RED BLOOD COUNT 4.08 10^6/uL (4.00-5.40); WHITE BLOOD COUNT 9.6 10^3/uL (4.0-10.0)
[2020-01-18 23:35] LABS: INR 1.19; PROTHROMBIN TIME 15.4 SECONDS (12.5-14.3)
--- NOTE | 2020-01-18 23:52 | REPVR ---
PROCEDURE INFORMATION: Exam: XR Chest, 1 View Exam date and time: 01/18/2020 11:31 PM Age: 74 years old Clinical indication: Other: Chest pain TECHNIQUE: Imaging protocol: XR of the chest Views: 1 view. COMPARISON: CR Chest, 2 view PA, Lat 09/06/2017 10:34 AM FINDINGS: Lungs: Slight vascular congestion with perihilar and infrahilar infiltrates and slight interstitial prominence. Pleural space: Question of trace right pleural effusion. Heart/Mediastinum: Borderline cardiomegaly. Bones/joints: Unremarkable. IMPRESSION: Evidence of borderline or early congestive failure since 09/06/2017. Electronically signed by: Feroz Hardin On 01/18/2020 23:51:53 PM
[2020-01-18 23:55] LABS: ALBUMIN 3.4 GM/DL (3.2-5.2); ALT/SGPT 27 U/L (12-78); BILIRUBIN,DIRECT 0.2 MG/DL (0.0-0.2); BILIRUBIN,TOTAL 0.6 MG/DL (0.2-1.0); CK-MB VALUE MASS < 1.0 NG/ML (<3.6); CPK CREATINE PHOSPHOKINASE 47 U/L (26-192); LIPASE 104 U/L (73-393); MB/CK RELATIVE INDEX 2.13 (< OR =4); TOTAL PROTEIN 7.1 GM/DL (6.4-8.2); TROPONIN I < 0.02 NG/ML (< 0.10)
[2020-01-19] MEDS ORDERED: ISOVUE-370 76% 100ML VIAL As Ordered ONE (00:09)
--- NOTE | 2020-01-19 00:46 | REPVR ---
PROCEDURE INFORMATION: Exam: CT Angiography Chest With Contrast Exam date and time: 01/18/2020 12:20 AM Age: 74 years old Clinical indication: Dyspnea; Additional info: Rule out pulmonary embolism TECHNIQUE: Imaging protocol: Computed tomographic angiography of the chest with intravenous contrast. 3D rendering (Not supervised by radiologist): MIP and/or 3D reconstructed images were created by the technologist. Radiation optimization: All CT scans at this facility use at least one of these dose optimization techniques: automated exposure control; mA and/or kV adjustment per patient size (includes targeted exams where dose is matched to clinical indication); or iterative reconstruction. Contrast material: ISOVUE 370; Contrast volume: 75 ml; Contrast route: INTRAVENOUS (IV); COMPARISON: CR PORTABLE CHEST X-RAY 01/18/2020 11:23 PM FINDINGS: Pulmonary arteries: The main pulmonary artery measures 29 mm. No pulmonary embolism is identified. Aorta: The ascending thoracic aorta measures 29 mm. Lungs: Interstitial thickening with mild patchy bilateral infiltrates. Pleural space: Minimal bilateral pleural effusions. Heart: The left atrium measures 4.8 cm in its AP dimension. Lymph nodes: Numerous small mediastinal nodes which are borderline. Bones/joints: Unremarkable. No acute fracture. Soft tissues: Unremarkable. IMPRESSION: 1. Mild cardiomegaly. 2. Minimal bilateral pleural effusions with thick interstitium and mild scattered bilateral pulmonary infiltrates which may reflect pulmonary edema and mild congestive failure. 3. Borderline mediastinal nodes. 4. Otherwise negative CTA chest. No pulmonary embolism is identified. Electronically signed by: Feroz Hardin On 01/19/2020 00:46:16 AM
[2020-01-19 01:12] LABS: NT-PRO BNP 4645 PG/ML (<125)
[2020-01-19] MEDS ORDERED: FUROSEMIDE 20MG/2ML VIAL (J1940) IV ONE (01:15)
[2020-01-19] MEDS ORDERED: VITA50005 PO (01:16)
[2020-01-19] MEDS ORDERED: CELE1CAP4 PO (01:16)
[2020-01-19] MEDS ORDERED: ACET25TA12 PO (01:16)
[2020-01-19] MEDS ORDERED: POTA20TA6 PO (01:16)
[2020-01-19] MEDS ORDERED: FERR325T18 PO (01:16)
[2020-01-19] MEDS ORDERED: SM F10002 PO (01:21)
--- NOTE | 2020-01-19 01:24 | IPNPDOC ---
Text Note Date of Service The patient was seen on 01/19/20. NOTE TIME OF SERVICE 150AM (or 12:50AM day light savings time) is a 74 yr old w a hx of post op parox afib, severe pulm HTN (Echo 2012), HTN, Crohns, bowel resection w temp colostomy, & hysterectomy for cervical cancer who presented w c/o sudden onset dyspnea that improved w sitting up that was associated w chest heaviness. PE was only remarkable for tachycardia in the 110s and diaphoresis EKG showed rapid afib w HR in the 140s / BNP was >4000 / CTA showed mild cardiomegaly & bilateral pleural effusions She will be admitted for management of: 1 Rapid afib rate control, blood thinners, trend trops, f/u Echo 2 Fluid Overload possibly 2/2 acute CHF or worsening pulm HTN Lasix and f/u Echo Rest per H&P VS,Fishbone, I+O VS, Fishbone, I+O Laboratory Tests 01/18/20 23:18 Vital Signs Date Time Temp Pulse Resp B/P (MAP) Pulse Ox O2 Delivery O2 Flow Rate FiO2 01/19/20 01:30 149/71 (97) 01/19/20 01:28 102 97 01/19/20 01:00 97.0 16 01/18/20 22:58 Room Air GAURANG BALDERAS MD Jan 19, 2020 01:24
--- NOTE | 2020-01-19 01:59 | HPEPDOC ---
[facility] Medical History & Physical Date of Admission Jan 19, 2020 Date of Service: Jan 19, 2020 Primary Care Physician: Dillon Moy M.D. Attending Physician: GAURANG BALDERAS MD History and Physical CHIEF COMPLAINT: Shortness of breath HISTORY OF PRESENT ILLNESS: Patient is a 74 year old female who presented to the [facility] ER with complaint of sudden onset shortness of breath that woke her up from sleep. She states that she was watching tv and having difficulty sleeping. She finally was able to get to sleep however woke up abruptly with shortness of breath. She stated that she just felt like she could not catch her breath. On further questioning she reveals that she has actually been having shortness of breath for about 3 weeks now. She states that she has had 3 deaths in the family and she had thought that everything was related to stress. She stated that she had been getting short of breath walking up stairs and occasionally when lying flat. She also noted that she has had on and off palpitations over the past few weeks. She stated that she has a doctors appointment with her PCP and she figured she would bring it up at that visit. She denies any chest pain. She denies any weight gain or leg swelling. In the ER the patient was found to be in atrial fibrillation with RVR. She was given IV diltiazem x2 which helped with rate control. She received a chest x-ray and CT angiography which demonstrated some mild vascular congestion and enlarged heart border. She did have an elevated BNP and was given 20mg IV lasix. Currently the patient states that she feels better. She denies any shortness of breath. Hospitalist service was consulted and the patient was admitted for further evaluation and management PAST MEDICAL HISTORY: 1. Ulcerative Colitis 2. Chronic Knee pain on Celebrex 3. Hypertension 4. GERD 5. H/O Atrial fibrillation 2/2 sepsis from peritonitis PAST SURGICAL HISTORY: 1. Colon resection with colostomy and colostomy reversal 2. Hernia Repair 3. Hysterectomy SOCIAL HISTORY: Patient lives at home with her navy senior officer. She is independent of her ADLs. She is a former smoker and quit 7 years ago. She denies any IV or i llicit drug use FAMILY HISTORY: Patient has a family history of ASCVD with strokes in both her brothers. She has a daughter who was diagnosed with a pheochromocytoma ALLERGIES: Please see below. REVIEW OF SYSTEMS: CONSTITUTIONAL: Denies fevers, chills, unintentional weightloss or weight gain. Denies night sweats HEENT: Denies dysphagia. Denies pain on swallowing. Denies headache CARDIOVASCULAR: Denies chest pain. Admits to palpitations and feelings of the heart racing RESPIRATORY: Admits to shortness of breath especially with exertion. Denies cough or wheeze. Denies hemoptysis GASTROINTESTINAL: Denies abdominal pain. Denies diarrhea, constipation. denies nausea or vomiting GENITOURINARY: Denies increased frequency or urgency. Denies dysuria SKIN: Denies rashes or lesions MUSCULOSKELETAL: Admits to chronic right knee pain NEUROLOGICAL: Denies changes in speech or gait PSYCHIATRIC: Denies depression or anxiety ENDOCRINE: Denies heat intolerance or cold intolerance HEMATOLOGIC/LYMPHATIC: Denies easy bruising or bleeding. Denies DVT or PE HOME MEDICATIONS: Please see below. PHYSICAL EXAMINATION: VITAL SIGNS: Temperature 99.4, pulse 112, respiratory rate 18, blood pressure 157/91, pulse oximetry 93% on room air. GENERAL APPEARANCE: Patient is awake, alert, and oriented. She does not appear to be in any acute distress. Lying comfortably in stretcher HEENT: Atraumatic, normocephalic. Eyes are nonicteric. Trachea is midline. Mucous membranes are pink and moist CARDIOVASCULAR: Normal S1, S2. Tachycardiac rate with irregularly irregular rhythm. No clicks, rubs, or murmurs LUNGS: Clear breath sounds bilaterally with mild crackles in the bases bilaterally. Symmetric chest expansion. No wheezes or rhonchi ABDOMEN: Soft, nondistended. Nontender. incisional hernia present. Normoactive bowel sounds present EXTREMITIES: No edema. Full and equal pulses bilaterally NEUROLOGICAL: No focal neurological deficits PSYCHIATRIC: Mood and affect appear appropriate LABORATORY DATA: See below. IMAGING: PROCEDURE INFORMATION: Exam: XR Chest, 1 View Exam date and time: 01/18/2020 11:31 PM Age: 74 years old Clinical indication: Other: Chest pain TECHNIQUE: Imaging protocol: XR of the chest Views: 1 view. COMPARISON: CR Chest, 2 view PA, Lat 09/06/2017 10:34 AM FINDINGS: Lungs: Slight vascular congestion with perihilar and infrahilar infiltrates and slight interstitial prominence. Pleural space: Question of trace right pleural effusion. Heart/Mediastinum: Borderline cardiomegaly. Bones/joints: Unremarkable. IMPRESSION: Evidence of borderline or early congestive failure since 09/06/2017. Electronically signed by: Feroz Hardin On 01/18/2020 23:51:53 PM PROCEDURE INFORMATION: Exam: CT Angiography Chest With Contrast Exam date and time: 01/18/2020 12:20 AM Age: 74 years old Clinical indication: Dyspnea; Additional info: Rule out pulmonary embolism TECHNIQUE: Imaging protocol: Computed tomographic angiography of the chest with intravenous contrast. 3D rendering (Not supervised by radiologist): MIP and/or 3D reconstructed images were created by the technologist. Radiation optimization: All CT scans at this facility use at least one of these dose optimization techniques: automated exposure control; mA and/or kV adjustment per patient size (includes targeted exams where dose is matched to clinical indication); or iterative reconstruction. Contrast material: ISOVUE 370; Contrast volume: 75 ml; Contrast route: INTRAVENOUS (IV); COMPARISON: CR PORTABLE CHEST X-RAY 01/18/2020 11:23 PM FINDINGS: Pulmonary arteries: The main pulmonary artery measures 29 mm. No pulmonary embolism is identified. Aorta: The ascending thoracic aorta measures 29 mm. Lungs: Interstitial thickening with mild patchy bilateral infiltrates. Pleural space: Minimal bilateral pleural effusions. Heart: The left atrium measures 4.8 cm in its AP dimension. Lymph nodes: Numerous small mediastinal nodes which are borderline. Bones/joints: Unremarkable. No acute fracture. Soft tissues: Unremarkable. IMPRESSION: 1. Mild cardiomegaly. 2. Minimal bilateral pleural effusions with thick interstitium and mild scattered bilateral pulmonary infiltrates which may reflect pulmonary edema and mild congestive failure. 3. Borderline mediastinal nodes. 4. Otherwise negative CTA chest. No pulmonary embolism is identified. Electronically signed by: Feroz Hardin On 01/19/2020 00:46:16 AM MICROBIOLOGY: Please see below. ASSESSMENT: Patient is a 74 year old female who presented to the [facility] ER with complaint of sudden onset shortness of breath that awoke her from sleep. She was found to be in atrial fibrillation with RVR with mild vascular congestion on chest x-ray. PLAN: 1. Paroxysmal Atrial Fibrillation with Rapid Ventricular Response -Patient presented with sudden onset shortness of breath that awoke her from sleep. On presentation to ER she had vascular congestion likely secondary to atrial fibrillation with RVR -Patient states she does not have a history of atrial fibrillation although she had documented atrial fibrillation after developing septic shock from peritonitis in the past. She was on Xarelto in the past but no longer takes any anticoagulation -Will obtain echocardiogram. -Continue Xarelto -TSH pending -Will start Lopressor 25 mg BID -Telemetry monitoring -Consider cardiology consultation. If her Atrial fibrillation is new onset then she may benefit from Rhythm control therapy as demonstrated in [facility] Early Rhythm Control Therapy in Patients with Atrial Fibrillation 2. New onset Heart Failure likely 2/2 atrial fibrillation with RVR -Patient was noted to have increased vascular congestion on chest x-ray as well as elevated BNP. This is likely secondary to atrial fibrillation with RVR. She was given lasix 20mg IV with diuresis -Echocardiogram pending, troponin is negative -Patient noticed progressively increased shortness of breath over the past several weeks as well as on and off palpitations. -Will hold Celecoxib until echocardiogram -Will continue Lasix 20mg IV daily for now. She is lasix naive. Will follow electrolytes and replete prn -2 g sodium restricted diet 3. Ulcerative Colitis -Will continue her mesalamine. Currently stable 4. HTN -Patient will be started on Lopressor -Will monitor BP and titrate prn 5. GERD -Continue prilosec 6. DVT Prophylaxis -Will start eliquis Vital Signs Vital Signs Date Time Temp Pulse Resp B/P (MAP) Pulse Ox O2 Delivery O2 Flow Rate FiO2 01/19/20 01:30 149/71 (97) 01/19/20 01:28 102 97 01/19/20 01:00 97.0 16 01/18/20 22:58 Room Air Laboratory Data Labs 24H Laboratory Tests 2 01/18/20 23:18: Immature Granulocyte % (Auto) 0.4, Neutrophils (%) (Auto) 90.6H, Lymphocytes (%) (Auto) 4.4L, Monocytes (%) (Auto) 4.2, Eosinophils (%) (Auto) 0.2, Basophils (%) (Auto) 0.2, Neutrophils # (Auto) 8.7H, Lymphocytes # (Auto) 0.4L, Monocytes # (Auto) 0.4, Eosinophils # (Auto) 0.0, Basophils # (Auto) 0.0, Nucleated Red Blood Cells % (auto) 0.0, Prothrombin Time 15.4H, Prothromb Time International Ratio 1.19, Total Bilirubin 0.6, Direct Bilirubin 0.2, Aspartate Amino Transf (AST/SGOT) 30, Alanine Aminotransferase (ALT/SGPT) 27, Alkaline Phosphatase 111, Total Creatine Kinase 47, Creatine Kinase MB < 1.0, Creatine Kinase MB Relative Index 2.13, Troponin I < 0.02, [id number] Natriuretic Peptide 4645H, Total Protein 7.1, Albumin 3.4, Albumin/Globulin Ratio 0.9L, Lipase 104 01/18/20 23:22: POC Troponin I (Misc) 0.01 01/18/20 23:26: POC Glucose (Misc Panel) 157H, POC Sodium (Misc Panel) 137, POC Potassium (Misc Panel) 4.0, POC Chloride (Misc Panel) 105, POC Total CO2 (Misc Panel) 21.0L, POC Blood Urea Nitrogen (Misc Panel 15, POC Ionized Calcium (Misc Panel) 4.4L, POC Creatinine (Misc Panel) 0.8, POC Hematocrit (Misc Panel) 39.0 CBC/BMP Laboratory Tests 01/18/20 23:18 Home Medications Scheduled Acetaminophen/Diphenhydramine (Acetaminophen Pm Caplet) 1 Each Tablet, 2 TAB PO QHS Apixaban (Eliquis) 5 Mg Tablet, 5 MG PO BID Calcium Carbonate (Tums) 500 Mg Chw, 500 MG PO DAILY Celecoxib (Celebrex) 200 Mg Capsule, 200 MG PO DAILY Ergocalciferol (Vitamin D2) (Vitamin D2) 50,000 Units Cap, 50,000 UNITS PO Q2WK monday Ferrous Sulfate (Ferrous Sulfate) 325 Mg Tablet, 325 MG PO Q2D Flaxseed Oil (Flax Oil) 1,000 Mg Capsule, 1,000 MG PO DAILY Furosemide (Lasix) 20 Mg Tablet, 20 MG PO DAILY Lactobacillus Acidophilus (Probiotic) 1 Cap Cap, 1 CAP PO DAILY Mesalamine (Apriso) 0.375 Gm Cap, 1.5 GM PO DAILY Metoprolol Succinate (Toprol Xl) 100 Mg Tab.er.24h, 100 MG PO DAILY Multivitamins (Thera M Plus Tablet) 1 Tab Tab, 1 TAB PO DAILY [place]-3 Fatty Acids/Fish Oil ([place] 3 1,000 mg Softgel) 1 Cap Cap, 1 CAP PO DAILY Omeprazole (Omeprazole) 40 Mg Cap, 40 MG PO QHS Potassium Chloride (Potassium Chloride) 20 Meq Tab.er.prt, 20 MEQ PO DAILY Ubidecarenone (Co Q-10) 100 Mg Cap, 100 MG PO DAILY Scheduled PRN Psyllium Seed (with Sugar) (Metamucil Powder) 48.57 % Pow, 1 PKT PO DAILY PRN for CONSTIPATION Allergies Coded Allergies: metronidazole (Verified Allergy, Severe, HIVES/DIFFICULTY BREATHING, 01/19/20) Sulfa (Sulfonamide Antibiotics) (Verified Adverse Reaction, Mild, VOMITS, 01/19/20) A-FIB/CHADSVASC A-FIB History Current/History of A-Fib/PAF?: Yes Current PO Anticoag Therapy: Yes GME ATTESTATION GME ATTESTATION My faculty preceptor for this patient encounter was physically present during the encounter and was fully available. All aspects of the patient interview, examination, medical decision making process, and medical care plan development were reviewed and approved by the faculty preceptor. The faculty preceptor is aware and concurs with the plan as stated in the body of this note and will attest to such by his/her cosignature. ATTENDING NOTE Please see my addendum dated 03/20/19 for additional details. I reviewed the H&P and agree with the findings as documented. KARI DAVID DO Jan 19, 2020 01:59 GAURANG BALDERAS MD Jan 22, 2020 15:53
[2020-01-19] MEDS ORDERED: METAMUCIL (PSYLLIUM) PACKET PO PRN (02:00)
[2020-01-19] MEDS ORDERED: ACETAMINOPHEN TAB 650MG DOSE (2X325MG) PO PRN (02:00)
[2020-01-19 05:08] LABS: MAGNESIUM LEVEL 1.6 MG/DL (1.8-2.4)
[2020-01-19 05:17] LABS: HEMATOCRIT 38.7 % (36.0-47.0); MEAN CORPUSCULAR HEMOGLOBIN 32.2 pg (27.0-33.0); MEAN CORPUSCULAR HGB CONC 33.6 g/dl (32.0-36.5); MEAN CORPUSCULAR VOLUME 95.8 fl (80.0-96.0); PLATELET COUNT, AUTOMATED 208 10^3/uL (150-450); RED BLOOD COUNT 4.04 10^6/uL (4.00-5.40); WHITE BLOOD COUNT 8.6 10^3/uL (4.0-10.0)
[2020-01-19 05:45] LABS: BLOOD UREA NITROGEN 12 MG/DL (7-18); CALCIUM LEVEL 8.3 MG/DL (8.8-10.2); CARBON DIOXIDE LEVEL 24 MEQ/L (21-32); CHLORIDE LEVEL 108 MEQ/L (98-107); CK-MB VALUE MASS < 1.0 NG/ML (<3.6); CPK CREATINE PHOSPHOKINASE 42 U/L (26-192); CREATININE FOR GFR 0.79 MG/DL (0.55-1.30); GLOMERULAR FILTRATION RATE > 60.0 (>39); GLUCOSE, FASTING 114 MG/DL (70-100); MB/CK RELATIVE INDEX 2.38 (< OR =4); POTASSIUM SERUM 3.5 MEQ/L (3.5-5.1); SODIUM LEVEL 142 MEQ/L (136-145); TROPONIN I < 0.02 NG/ML (< 0.10)
[2020-01-19] MEDS ORDERED: METOPROLOL 5 MG/5 ML VIAL IV STA (06:23)
[2020-01-19] MEDS ORDERED: ONDANSETRON 4MG/2ML VIAL As Ordered ONE (06:47)
[2020-01-19] MEDS: ONDANSETRON 4MG/2ML VIAL IV PRN ×2 (06:48→17:40)
[2020-01-19] MEDS ORDERED: DIGOXIN INJ 0.5 MG/2 ML AMP (J1160) IV STA (06:50)
[2020-01-19 07:42] VITALS: BP 123/57
--- NOTE | 2020-01-19 08:02 | ECGEPIP ---
[facility] - ED Test Date: 2020-01-18 Pat Name: TANO CHICAS Department: Room: [place] [address] Gender: Female Insole Tacker: glendy : 1945 Requested By: HUNTER CARSON Order Number: [id number] Reading MD: Hunter Dixon Measurements Intervals [place] Rate: 154 P: GA: 0 QRS: 50 QRSD: 86 T: 66 QT: 285 QTc: 457 Interpretive Statements ATRIAL FIBRILLATION WITH RAPID VENTRICULAR RESPONSE WITH ABERRANT CONDUCTION OR VENTRICULAR PREMATURE COMPLEXES NONSPECIFIC ST & T-WAVE ABNORMALITY RHYTHM/RATE CHANGE COMPARED TO 09/06/17 Electronically Signed on 01-19-2020 8:02:14 EST by Hunter Dixon
[2020-01-19] MEDS: FUROSEMIDE 20MG/2ML VIAL (J1940) IV SCH (08:16)
[2020-01-19] MEDS: CALCIUM CARBONATE 500 MG CHEW U/D PO SCH (08:16)
[2020-01-19] MEDS: MULTIVITAMINS/MINERALS THERAP 1 TAB PO SCH (08:16)
[2020-01-19] MEDS: APIXABAN 5 MG TAB (ELIQUIS) PO SCH ×2 (08:16→20:45)
[2020-01-19] MEDS: OMEGA-3 1000MG CAPSULE PO SCH (08:18)
[2020-01-19] MEDS: FERROUS SULFATE 325MG TAB PO SCH (08:18)
[2020-01-19] MEDS: MESALAMINE 250 MG CR CAP PO SCH ×2 (08:18→20:45)
[2020-01-19] MEDS ORDERED: APIXABAN 5 MG TAB (ELIQUIS) PO SCH (09:00)
[2020-01-19] MEDS ORDERED: SLF 3 ML SYR IV PRN (09:00)
[2020-01-19] MEDS ORDERED: METOPROLOL TART 25 MG TABLET PO SCH (09:00)
[2020-01-19] MEDS ORDERED: METOPROLOL TART 25 MG TABLET PO ONE ×2 (09:15→20:30)
--- NOTE | 2020-01-19 09:50 | IPNPDOC ---
Text Note Date of Service The patient was seen on 01/19/20. NOTE Subjective: No any acute events overnight. Patient denies fever, chills, nausea, vomiting, chest pain, diarrhea or dysuria Objective: GENERAL APPEARANCE: NAD HEENT: no scleral icterus, no JVD, EOMI CARDIOVASCULAR: irregularly irregular LUNGS: CTA ABDOMEN: soft & not tender w palpitation MUSCULOSKELETAL: no cyanosis, no swelling INTEGUMENT: no generalized palor NEUROLOGICAL: cranial nerve function from 2-12 intact intact, follows commands, speech not dysarthric Assessment and plan Patient is a 74 year old female who presented to the [facility] ER with complaint of sudden onset shortness of breath that awoke her from sleep. She was found to be in atrial fibrillation with RVR with mild vascular congestion on chest x-ray. Atrial fibrillation with rapid ventricular rate Patient stated that she has been diagnosed with atrial fibrillation in the past Echo pending Continue xarelto I increased the dose of metoprolol to 50 twice a day CHF exacerbation Most likely secondary to atrial fibrillation with RVR I's and O's Echo pending Continue Lasix Ulcerative Colitis Will continue her mesalamine. Currently stable HTN Blood pressures under control GERD Continue prilosec VS,Fishbone, I+O VS, Fishbone, I+O Laboratory Tests 01/18/20 23:18 01/19/20 04:28 Vital Signs Date Time Temp Pulse Resp B/P (MAP) Pulse Ox O2 Delivery O2 Flow Rate FiO2 01/19/20 09:28 100 120/72 01/19/20 07:42 99.6 20 95 Nasal Cannula 2.0 I&O- Last 24 Hours up to 6 AM 01/19/20 06:00 Intake Total 300 ml Output Total 400 ml Balance -100 ml ALISTAIR BEE DO Jan 19, 2020 09:50
[2020-01-19 11:39] VITALS: BP 129/55
[2020-01-19] MEDS: SLF 3 ML SYR IV SCH ×2 (13:03→20:45)
[2020-01-19 16:00] VITALS: BP 122/71
[2020-01-19] MEDS ORDERED: METOPROLOL TART 50 MG TAB PO ONE (17:15)
[2020-01-19 20:00] VITALS: BP 101/59
[2020-01-19] MEDS: OMEPRAZOLE 20 MG CAP PO SCH (20:44)
[2020-01-19] MEDS ORDERED: METOPROLOL TART 50 MG TAB PO SCH (21:00)
[2020-01-20] VITALS: BP 122/57
[2020-01-20 04:00] VITALS: BP 122/60
[2020-01-20 05:11] LABS: HEMATOCRIT 35.1 % (36.0-47.0); HEMOGLOBIN 11.3 g/dl (12.0-15.5); MEAN CORPUSCULAR HGB CONC 32.2 g/dl (32.0-36.5); MEAN CORPUSCULAR VOLUME 96.2 fl (80.0-96.0); PLATELET COUNT, AUTOMATED 197 10^3/uL (150-450); RED BLOOD COUNT 3.65 10^6/uL (4.00-5.40); WHITE BLOOD COUNT 8.6 10^3/uL (4.0-10.0)
[2020-01-20 05:23] LABS: BLOOD UREA NITROGEN 16 MG/DL (7-18); CALCIUM LEVEL 7.9 MG/DL (8.8-10.2); CARBON DIOXIDE LEVEL 25 MEQ/L (21-32); CHLORIDE LEVEL 104 MEQ/L (98-107); GLOMERULAR FILTRATION RATE > 60.0 (>39); GLUCOSE, FASTING 104 MG/DL (70-100); POTASSIUM SERUM 3.5 MEQ/L (3.5-5.1); SODIUM LEVEL 138 MEQ/L (136-145)
[2020-01-20] MEDS: SLF 3 ML SYR IV SCH ×3 (06:14→21:55)
[2020-01-20 08:00] VITALS: BP 127/75
[2020-01-20] MEDS ORDERED: POTASSIUM CHLORIDE 10 MEQ SR TABLET PO ONE (08:15)
[2020-01-20] MEDS: CALCIUM CARBONATE 500 MG CHEW U/D PO SCH (08:30)
[2020-01-20] MEDS: MESALAMINE 250 MG CR CAP PO SCH ×2 (08:30→21:54)
[2020-01-20] MEDS: OMEGA-3 1000MG CAPSULE PO SCH (08:31)
[2020-01-20] MEDS: METOPROLOL TART 50 MG TAB PO SCH ×3 (08:32→21:54)
[2020-01-20] MEDS: MULTIVITAMINS/MINERALS THERAP 1 TAB PO SCH (08:32)
[2020-01-20] MEDS: FUROSEMIDE 20MG/2ML VIAL (J1940) IV SCH (08:32)
[2020-01-20] MEDS: APIXABAN 5 MG TAB (ELIQUIS) PO SCH ×2 (08:32→21:52)
[2020-01-20 09:45] LABS: MAGNESIUM LEVEL 1.8 MG/DL (1.8-2.4)
--- NOTE | 2020-01-20 09:47 | IPNPDOC ---
Text Note Date of Service The patient was seen on 01/20/20. NOTE Subjective: No any acute events overnight. Patient stated that she feels much better today, she denied palpitations or chest pain Objective: GENERAL APPEARANCE: NAD HEENT: no scleral icterus, no JVD, EOMI CARDIOVASCULAR: irregularly irregular LUNGS: CTA ABDOMEN: soft & not tender w palpitation MUSCULOSKELETAL: no cyanosis, no swelling INTEGUMENT: no generalized palor NEUROLOGICAL: cranial nerve function from 2-12 intact intact, follows commands, speech not dysarthric Assessment and plan Patient is a 74 year old female who presented to the [facility] ER with complaint of sudden onset shortness of breath that awoke her from sleep. She was found to be in atrial fibrillation with RVR with mild vascular congestion on chest x-ray. Atrial fibrillation with rapid ventricular rate Patient stated that she has been diagnosed with atrial fibrillation in the past Echo done, result pending Continue xarelto I increased the dose of metoprolol to 50 3 times a day CHF exacerbation Most likely secondary to atrial fibrillation with RVR I's and O's Await Echo Continue Lasix Ulcerative Colitis Will continue her mesalamine. Currently stable HTN Blood pressures under control GERD Continue prilosec VS,Fishbone, I+O VS, Fishbone, I+O Laboratory Tests 01/20/20 04:47 Vital Signs Date Time Temp Pulse Resp B/P (MAP) Pulse Ox O2 Delivery O2 Flow Rate FiO2 01/20/20 08:32 96 127/75 01/20/20 08:00 99.3 20 96 Room Air 01/19/20 20:00 2.0 I&O- Last 24 Hours up to 6 AM 01/20/20 06:00 Intake Total 1200 ml Output Total 720 ml Balance 480 ml ALISTAIR BEE DO Jan 20, 2020 09:47
[2020-01-20] MEDS: ONDANSETRON 4MG/2ML VIAL IV PRN ×2 (12:56→22:17)
[2020-01-20 20:00] VITALS: BP 121/67
[2020-01-20] MEDS: OMEPRAZOLE 20 MG CAP PO SCH (21:54)
[2020-01-21 04:00] VITALS: BP_SYST 118; BP_SYST 138; BP_DIAS 64; BP_DIAS 90
[2020-01-21] MEDS: SLF 3 ML SYR IV SCH (05:27)
[2020-01-21 05:47] LABS: HEMATOCRIT 36.2 % (36.0-47.0); HEMOGLOBIN 12.1 g/dl (12.0-15.5); MEAN CORPUSCULAR HEMOGLOBIN 31.8 pg (27.0-33.0); MEAN CORPUSCULAR HGB CONC 33.4 g/dl (32.0-36.5); MEAN CORPUSCULAR VOLUME 95.3 fl (80.0-96.0); PLATELET COUNT, AUTOMATED 180 10^3/uL (150-450); WHITE BLOOD COUNT 6.5 10^3/uL (4.0-10.0)
[2020-01-21 06:14] LABS: BLOOD UREA NITROGEN 14 MG/DL (7-18); CALCIUM LEVEL 7.8 MG/DL (8.8-10.2); CARBON DIOXIDE LEVEL 26 MEQ/L (21-32); CHLORIDE LEVEL 102 MEQ/L (98-107); CREATININE FOR GFR 0.96 MG/DL (0.55-1.30); GLOMERULAR FILTRATION RATE > 60.0 (>39); GLUCOSE, FASTING 105 MG/DL (70-100); POTASSIUM SERUM 3.5 MEQ/L (3.5-5.1); SODIUM LEVEL 136 MEQ/L (136-145)
[2020-01-21 08:00] VITALS: BP 122/58
[2020-01-21] MEDS: CALCIUM CARBONATE 500 MG CHEW U/D PO SCH (08:12)
[2020-01-21] MEDS: MESALAMINE 250 MG CR CAP PO SCH (08:12)
[2020-01-21 08:13] VITALS: BP 118/64
[2020-01-21] MEDS: OMEGA-3 1000MG CAPSULE PO SCH (08:13)
[2020-01-21] MEDS: METOPROLOL TART 50 MG TAB PO SCH (08:13)
[2020-01-21] MEDS: MULTIVITAMINS/MINERALS THERAP 1 TAB PO SCH (08:13)
[2020-01-21] MEDS: FERROUS SULFATE 325MG TAB PO SCH (08:14)
[2020-01-21] MEDS: APIXABAN 5 MG TAB (ELIQUIS) PO SCH (08:14)
[2020-01-21] MEDS: FUROSEMIDE 20MG/2ML VIAL (J1940) IV SCH (08:14)
[2020-01-21] MEDS ORDERED: LASI20TA3 PO (10:24)
[2020-01-21] MEDS ORDERED: TOPR100T PO (10:36)
[2020-01-21] MEDS ORDERED: ELIQ5TAB PO (10:36)
--- NOTE | 2020-01-21 12:37 | ECHO ---
DATE OF PROCEDURE: 01/19/2020 Age: 74 Gender: Female Height: 64 inches Weight: 165 pounds Body surface area: 1.8 m2 PATIENT LOCATION: Inpatient progressive care unit (PCU), Room 3211. REFERRING PHYSICIAN: Nilesh Rodríguez DO. INDICATION: Atrial fibrillation. Fluid overload ? MEASUREMENTS: 2D Measurements: RV 3.8 cm LV 6.0 cm Septum 0.9 cm Posterior wall 0.9 cm Aortic Root 2.9 cm LA 4.4 cm LVEF 50% Doppler Measurements: AV 1.74 m/s LVOT 1.0 m/s LVOT diameter 2.3 cm MV-E 85 Early mitral deceleration time 174 m/s E prime medial 8.5, E prime lateral 10.2 Average E/E prime ratio 9.1/PCWP - 13 mmHg PV 0.8 m/s Pulmonary artery acceleration time 95 m/s RVSP 39 mmHg IVC 1.5 cm COMMENTS: Underlying atrial fibrillation with controlled ventricular response. No intraventricular conduction disturbance. M-mode and two-dimensional was performed with pulse, continuous wave, color flow, and tissue Doppler studies. Mild-moderately dilated left ventricle with normal wall thickness and at least slight global hypokinesis appearing worse in the inferoseptal region. At least mild impairment of global systolic function based on the observed degree of mitral insufficiency (measured ejection fraction should be 75%). Moderately dilated left atrium with currently normal estimated mean left atrial pressure. Normal right ventricular size and motion with Doppler evidence of mild pulmonary hypertension. Mildly dilated left atrium with normal inferior vena cava (IVC) size and collapse against an elevated central venous pressure at this time. Normal aortic dimensions. Slight asymmetrical aortic valvular sclerosis without stenosis and only trace to very mild insufficiency. Mild degenerative changes of the mitral valvular apparatus with adequate leaflet excursion and no posterior systolic buckling, but at least a mild to moderate degree of eccentric mitral insufficiency toward the floor of the left atrium. Normal appearing tricuspid valve with mild insufficiency. No apparent intracardiac mass or pericardial effusion. MTDD
--- NOTE | 2020-01-21 13:24 | DS.PDOC ---
Discharge Summary General Date of Admission Jan 19, 2020 at 01:23 Date of Discharge 01/21/20 Discharge Summary PROCEDURES PERFORMED DURING STAY: [None]. ADMITTING DIAGNOSES: Atrial fibrillation with rapid ventricular rate Diastolic CHF exacerbation Ulcerative Colitis HTN GERD DISCHARGE DIAGNOSES: Atrial fibrillation with rapid ventricular rate Diastolic CHF exacerbation Ulcerative Colitis HTN GERD COMPLICATIONS/CHIEF COMPLAINT: Fluid Overload. HISTORY OF PRESENT ILLNESS:Patient is a 74 year old female who presented to the [facility] ER with complaint of sudden onset shortness of breath that awoke her from sleep. She was found to be in atrial fibrillation with RVR with mild vascular congestion on chest x-ray. HOSPITAL COURSE: The following issue addressed Atrial fibrillation with rapid ventricular rate Patient stated that she has been diagnosed with atrial fibrillation in the past Echo done, result pending Continue xarelto I increased the dose of metoprolol to 50 3 times a day CHF exacerbation Most likely secondary to atrial fibrillation with RVR I's and O's Echo showed [facility] NAME: TANO CHICAS : 1945 MEDICAL REC #: [id number] [facility] ACCOUNT: [id number] ORDERING DOCTOR: ALISTAIR BEE DO PATIENT STATUS: DIS IN DICTATING DOCTOR: Pablo Kaur MD, [facility] REPORT #: [id number] cc: [~ rep ct ivnm] ECHOCARDIOGRAM-DOPPLER REPORT Printed: [~ rep prt dt last] [~ rep prt tm last] Page 2 of [address] [address] ECHOCARDIOGRAM-DOPPLER REPORT ECHOCARDIOGRAM-DOPPLER REPORT Printed: [~ rep prt dt last] [~ rep prt tm last] Page 1 of 1 Underlying atrial fibrillation with controlled ventricular response. No intraventricular conduction disturbance. M-mode and two-dimensional was performed with pulse, continuous wave, color flow, and tissue Doppler studies. Mild-moderately dilated left ventricle with normal wall thickness and at least slight global hypokinesis appearing worse in the inferoseptal region. At least mild impairment of global systolic function based on the observed degree of mitral insufficiency (measured ejection fraction should be 75%). Moderately dilated left atrium with currently normal estimated mean left atrial pressure. Normal right ventricular size and motion with Doppler evidence of mild pulmonaryhypertension. Mildly dilated left atrium with normal inferior vena cava (IVC) size and collapse against an elevated central venous pressure at this time. Normal aortic dimensions. Slight asymmetrical aortic valvular sclerosis without stenosis and only trace to very mild insufficiency. Mild degenerative changes of the mitral valvular apparatus with adequate leafletexcursion and no posterior systolic buckling, but at least a mild to moderate degree of eccentric mitral insufficiency toward the floor of the left atrium. Normal appearing tricuspid valve with mild insufficiency. No apparent intracardiac mass or pericardial effusion. DD: Pablo Kaur MD, [facility] 01/19/201999 DT: ANDERS 01/21/20843 DS: JOSIE 01/21/201900 <Electronically signed by Pablo Kaur > 01/21/201900 DS2: [~ rep ct labl] Continue Lasix Ulcerative Colitis Will continue her mesalamine. Currently stable HTN Blood pressures under control GERD Continue prilosec DISCHARGE MEDICATIONS: Please see below. ALLERGIES: Please see below. PHYSICAL EXAMINATION ON DISCHARGE: VITAL SIGNS: Please see below. GENERAL APPEARANCE: NAD HEENT: no scleral icterus, no JVD, EOMI CARDIOVASCULAR: irregularly irregular LUNGS: CTA ABDOMEN: soft & not tender w palpitation MUSCULOSKELETAL: no cyanosis, no swelling INTEGUMENT: no generalized palor NEUROLOGICAL: cranial nerve function from 2-12 intact intact, follows commands, speech not dysarthric LABORATORY DATA: Please see below. PROGNOSIS: Fair ACTIVITY: [As tolerated]. DIET: Cardiac DISCHARGE INSTRUCTIONS: Follow-up with die try out worker stamping in 3-5 days DISCHARGE CONDITION: [Stable]. TIME SPENT ON DISCHARGE: Greater than 30 minutes. Vital Signs/I&Os Vital Signs Date Time Temp Pulse Resp B/P (MAP) Pulse Ox O2 Delivery O2 Flow Rate FiO2 01/21/20 08:13 85 118/64 01/21/20 08:00 96.8 20 93 Room Air 01/19/20 20:00 2.0 I&O- Last 24 Hours up to 6 AM 01/21/20 06:00 Intake Total 540 ml Output Total 1425 ml Balance -885 ml Laboratory Data Labs 24H Laboratory Tests 2 01/21/20 05:32: Nucleated Red Blood Cells % (auto) 0.0, Anion Gap 8, Glomerular Filtration Rate > 60.0, Calcium Level 7.8L CBC/BMP Laboratory Tests 01/21/20 05:32 Microbiology Microbiology 01/19/20 Blood Culture - Preliminary, Resulted No Growth after 48 hours. All Specime... 01/19/20 Blood Culture - Preliminary, Resulted No Growth after 48 hours. All Specime... Discharge Medications Scheduled Acetaminophen/Diphenhydramine (Acetaminophen Pm Caplet) 1 Each Tablet, 2 TAB PO QHS, (Reported) Apixaban (Eliquis) 5 Mg Tablet, 5 MG PO BID Calcium Carbonate (Tums) 500 Mg Chw, 500 MG PO DAILY, (Reported) Celecoxib (Celebrex) 200 Mg Capsule, 200 MG PO DAILY, (Reported) Ergocalciferol (Vitamin D2) (Vitamin D2) 50,000 Units Cap, 50,000 UNITS PO Q2WK, (Reported) monday Ferrous Sulfate (Ferrous Sulfate) 325 Mg Tablet, 325 MG PO Q2D, (Reported) Flaxseed Oil (Flax Oil) 1,000 Mg Capsule, 1,000 MG PO DAILY, (Reported) Furosemide (Lasix) 20 Mg Tablet, 20 MG PO DAILY Lactobacillus Acidophilus (Probiotic) 1 Cap Cap, 1 CAP PO DAILY, (Reported) Mesalamine (Apriso) 0.375 Gm Cap, 1.5 GM PO DAILY, (Reported) Metoprolol Succinate (Toprol Xl) 100 Mg Tab.er.24h, 100 MG PO DAILY Multivitamins (Thera M Plus Tablet) 1 Tab Tab, 1 TAB PO DAILY, (Reported) [place]-3 Fatty Acids/Fish Oil ([place] 3 1,000 mg Softgel) 1 Cap Cap, 1 CAP PO DAILY, (Reported) Omeprazole (Omeprazole) 40 Mg Cap, 40 MG PO QHS, (Reported) Potassium Chloride (Potassium Chloride) 20 Meq Tab.er.prt, 20 MEQ PO DAILY, (Rep orted) Ubidecarenone (Co Q-10) 100 Mg Cap, 100 MG PO DAILY, (Reported) Scheduled PRN Psyllium Seed (with Sugar) (Metamucil Powder) 48.57 % Pow, 1 PKT PO DAILY PRN for CONSTIPATION, (Reported) Allergies Coded Allergies: metronidazole (Verified Allergy, Severe, HIVES/DIFFICULTY BREATHING, 01/19/20) Sulfa (Sulfonamide Antibiotics) (Verified Adverse Reaction, Mild, VOMITS, 01/19/20) ALISTAIR BEE DO Jan 21, 2020 13:24
== END 2020-01-21 13:19 | disposition home or self-care (01) | DRG 308 ==
LOC: M ED 22:58 → M ED INP 01-19 01:23 → M PCU 01-19 01:24 → ENRESERV 01-19 01:39
PROVIDERS: ADMIT Internal Medicine; ATTEND Internal Medicine
DX: I48.91 Unspecified atrial fibrillation (principal); I50.33 Acute on chronic diastolic (congestive) heart failure; K51.90 Ulcerative colitis, unspecified, without complications; I11.0 Hypertensive heart disease with heart failure; K21.9 Gastro-esophageal reflux disease without esophagitis; Z79.899 Other long term (current) drug therapy; Z88.2 Allergy status to sulfonamides; Z88.8 Allergy status to other drugs, medicaments and biological substances

== ENCOUNTER → 2020-01-25 | Outpatient (CLI) | payer MEDICARE ==
[~2020-01-25] MED LIST changes: +ACET25TA12 PO; +ELIQ5TAB PO; +FERR325T18 PO; +LASI20TA3 PO; +POTA20TA6 PO; +SM F10002 PO; +TOPR100T PO
[2020-01-25 11:22] LABS: BASO % 0.4 % (0.0-1.0); EOS # 0.1 10^3/uL (0.0-0.5); HEMATOCRIT 38.2 % (36.0-47.0); HEMOGLOBIN 12.5 g/dl (12.0-15.5); LYMPH # 1.2 10^3/uL (1.5-5.0); LYMPH % 16.8 % (24.0-44.0); MEAN CORPUSCULAR HGB CONC 32.7 g/dl (32.0-36.5); MEAN CORPUSCULAR VOLUME 91.6 fl (80.0-96.0); MONO # 0.7 10^3/uL (0.0-0.8); MONO % 9.6 % (0.0-5.0); NEUTROPHILS # 5.2 10^3/uL (1.5-8.5); NEUTROPHILS % 71.7 % (36.0-66.0); PLATELET COUNT, AUTOMATED 302 10^3/uL (150-450); RED BLOOD COUNT 4.17 10^6/uL (4.00-5.40); WHITE BLOOD COUNT 7.3 10^3/uL (4.0-10.0)
[2020-01-25 12:05] LABS: BLOOD UREA NITROGEN 13 MG/DL (7-18); CALCIUM LEVEL 8.9 MG/DL (8.8-10.2); CARBON DIOXIDE LEVEL 23 MEQ/L (21-32); CHLORIDE LEVEL 107 MEQ/L (98-107); CREATININE FOR GFR 0.93 MG/DL (0.55-1.30); GLOMERULAR FILTRATION RATE > 60.0 (>39); GLUCOSE, FASTING 103 MG/DL (70-100); POTASSIUM SERUM 3.2 MEQ/L (3.5-5.1); SODIUM LEVEL 139 MEQ/L (136-145)
[2020-01-25 12:06] LABS: ALBUMIN 3.1 GM/DL (3.2-5.2); ALT/SGPT 86 U/L (12-78); BILIRUBIN,TOTAL 0.3 MG/DL (0.2-1.0); FREE T4 1.39 NG/DL (0.76-1.46); MAGNESIUM LEVEL 1.9 MG/DL (1.8-2.4); NT-PRO BNP 4978 PG/ML (<125); TOTAL PROTEIN 6.9 GM/DL (6.4-8.2)
== END ==
LOC: M LAB 10:53
PROVIDERS: ATTEND Family Medicine
DX: I50.32 Chronic diastolic (congestive) heart failure (principal)

== ENCOUNTER → 2020-02-07 | Outpatient (REF) | payer MEDICARE ==
[2020-02-07 15:56] LABS: ALBUMIN 4.2 GM/DL (3.2-5.2); BILIRUBIN,TOTAL 0.4 MG/DL (0.2-1.0); CALCIUM LEVEL 9.3 MG/DL (8.8-10.2); CREATININE FOR GFR 0.99 MG/DL (0.55-1.30); GLOMERULAR FILTRATION RATE 58.7 (>39); MAGNESIUM LEVEL 1.8 MG/DL (1.8-2.4); POTASSIUM SERUM 4.6 MEQ/L (3.5-5.1)
== END ==
LOC: M SFHCPLAZ 13:41
PROVIDERS: ATTEND Family Medicine
DX: I50.32 Chronic diastolic (congestive) heart failure (principal)

== ENCOUNTER → 2020-03-03 | Outpatient (CLI) | payer MEDICARE ==
[2020-03-03 15:25] LABS: CALCIUM LEVEL 9.4 MG/DL (8.8-10.2); CREATININE FOR GFR 1.09 MG/DL (0.55-1.30); GLOMERULAR FILTRATION RATE 52.5 (>39); POTASSIUM SERUM 4.9 MEQ/L (3.5-5.1)
== END ==
LOC: M PLALAB 13:02
PROVIDERS: ATTEND Internal Medicine Cardiovascular Disease
DX: I50.33 Acute on chronic diastolic (congestive) heart failure (principal)

== ENCOUNTER → 2020-07-01 | Outpatient (CLI) | payer MEDICARE ==
[2020-07-01 15:15] LABS: HEMATOCRIT 35.8 % (36.0-47.0); HEMOGLOBIN 11.7 g/dl (12.0-15.5); MEAN CORPUSCULAR HEMOGLOBIN 32.8 pg (27.0-33.0); MEAN CORPUSCULAR HGB CONC 32.7 g/dl (32.0-36.5); MEAN CORPUSCULAR VOLUME 100.3 fl (80.0-96.0); PLATELET COUNT, AUTOMATED 238 10^3/uL (150-450); RED BLOOD COUNT 3.57 10^6/uL (4.00-5.40); WHITE BLOOD COUNT 5.2 10^3/uL (4.0-10.0)
[2020-07-01 15:43] LABS: ERYTHROCYTE SEDIMENTATION RATE 33 mm/hr (0-30)
[2020-07-01 21:31] LABS: BILIRUBIN,TOTAL 0.3 MG/DL (0.2-1.0); C REACTIVE PROTEIN QUANTITATIV 0.53 MG/DL (0.00-0.30); CALCIUM LEVEL 9.3 MG/DL (8.8-10.2); CREATININE FOR GFR 1.1 MG/DL (0.55-1.30); GLOMERULAR FILTRATION RATE 51.8 (>39); POTASSIUM SERUM 4.4 MEQ/L (3.5-5.1)
== END ==
LOC: M PLALAB 12:43
PROVIDERS: ATTEND Physician Assistant
DX: K21.9 Gastro-esophageal reflux disease without esophagitis (principal); K51.90 Ulcerative colitis, unspecified, without complications

== ENCOUNTER → 2020-08-13 | Outpatient (REF) | payer MEDICARE ==
[2020-08-13 13:46] LABS: BASO % 0.7 % (0.0-1.0); EOS # 0.2 10^3/uL (0.0-0.5); EOS % 3.7 % (0.0-3.0); LYMPH % 22.3 % (24.0-44.0); MEAN CORPUSCULAR HEMOGLOBIN 30.9 pg (27.0-33.0); MEAN CORPUSCULAR HGB CONC 32.4 g/dl (32.0-36.5); MEAN CORPUSCULAR VOLUME 95.4 fl (80.0-96.0); MONO # 0.5 10^3/uL (0.0-0.8); MONO % 10.3 % (2.0-8.0); NEUTROPHILS # 2.9 10^3/uL (1.5-8.5); NEUTROPHILS % 62.8 % (36.0-66.0); PLATELET COUNT, AUTOMATED 228 10^3/uL (150-450); RED BLOOD COUNT 3.88 10^6/uL (4.00-5.40); WHITE BLOOD COUNT 4.6 10^3/uL (4.0-10.0)
[2020-08-13 14:12] LABS: ALBUMIN 3.7 GM/DL (3.2-5.2); ALT/SGPT 16 U/L (12-78); BILIRUBIN,TOTAL 0.4 MG/DL (0.2-1.0); BLOOD UREA NITROGEN 14 MG/DL (7-18); CALCIUM LEVEL 9.4 MG/DL (8.8-10.2); CARBON DIOXIDE LEVEL 25 MEQ/L (21-32); CHLORIDE LEVEL 106 MEQ/L (98-107); CREATININE FOR GFR 0.81 MG/DL (0.55-1.30); FERRITIN 397 NG/ML (8-252); GLOMERULAR FILTRATION RATE > 60.0 (>39); GLUCOSE, FASTING 96 MG/DL (70-100); NT-PRO BNP 2674 PG/ML (<125); POTASSIUM SERUM 4.3 MEQ/L (3.5-5.1); PTH INTACT 68.3 PG/ML (18.5-88.0); SODIUM LEVEL 139 MEQ/L (136-145); TOTAL 25(OH) VITAMIN D 43.3 NG/ML (30.0-100.0); TOTAL PROTEIN 7.1 GM/DL (6.4-8.2)
== END ==
LOC: M PLALAB 12:04
PROVIDERS: ATTEND Family Medicine
DX: I50.32 Chronic diastolic (congestive) heart failure (principal); D50.0 Iron deficiency anemia secondary to blood loss (chronic); E55.9 Vitamin D deficiency, unspecified; Z79.899 Other long term (current) drug therapy

== ENCOUNTER → 2020-09-17 | Outpatient (CLI) | payer MEDICARE ==
[~2020-09-17] MED LIST changes: +ERGO500029 PO; +OMEP40CA4 PO; -OMEP40CA97 PO
--- NOTE | 2020-09-17 13:50 | REPMRS ---
Patient History The patient states she has not had a clinical breast exam in over a year. No known family history of cancer. Benign radio exam breast specimen of the right breast, June 29, 2018. Benign stereotatic loc for ea lesion of the right breast, June 29, 2018. No breast complaints today Patient signed the MRS sheet 1st covid vaccine 04/09/20-left arm-Moderna 2nd covid vaccine 05/07/20-left arm Priors on PACS Patient Identification Verified Digital Woman Screen Mammo: September 17, 2020 - Exam #: [id number] Bilateral CC and MLO view(s) were taken. Technologist: Yolis Melendez, Technologist Prior study comparison: August 28, 2019, bilateral digital woman screen mammo performed at [facility], [place]. June 15, 2018, right breast digital mammo diagnostic unilateral, performed at [facility]. June 05, 2017, digital woman screen mammo performed at [facility]. FINDINGS: There are scattered fibroglandular densities. The Volpara volumetric breast density category is:B. There is a needle biopsy marker clip noted in the right breast. There has been no change in the appearance of the mammogram from the prior studies. There is a mild amount of scattered fibroglandular density which is fairly symmetric. There is no interval development of dominant mass, architectural distortion, or grouped microcalcification suggestive of malignancy. 3-D tomosynthesis shows no additional findings. Assessment: BI-RADS/ACR category 2 mammogram. Benign Findings. Recommendation Routine screening mammogram of both breasts in 1 year (for women over age 40). This patient's [facility] Lifetime Breast Cancer Risk is estimated at 3.4 %. This mammogram was interpreted with the aid of an FDA-approved computer-aided dectection system. Electronically Signed By: Cliff Interiano MD 09/17/20 [id number]
--- NOTE | 2020-09-17 14:16 | DEXAMM ---
INDICATION: M85.80 BORDERLINE OSTEOPENIA. Right hip replacement. COMPARISON: Most recent comparison study November 27, 2015. The most remote prior exam is from January 30, 2002. TECHNIQUE: Bone density was measured using dual-energy x-ray absorptionmetry (DEXA). FINDINGS: AP SPINE L1-L4 BMD 1.600 g/cm2 Young Adult T-Score 3.5 Age Matched Z-Score 5.2. LT FEMUR, TOTAL BMD 1.143 g/cm2 Young Adult T-Score 1.1 Age Matched Z-Score 2.7. LT NECK BMD 1.260 g/cm2 Young Adult T-Score 1.6 Age Matched Z-Score 3.4. IMPRESSION: There is normal bone density of the spine. There is normal bone density of the left hip. The density of the spine has increased 6.2% since the initial exam on January 30, 2002. The density of the spine increased 2.2% since most recent exam on November 27, 2015. The density of the right hip has decreased 11.9% since the initial exam on January 30, 2002. The density of the right hip has decreased 4.2% since the most recent exam on November 27, 2015. FOLLOW-UP: Recommendation for the next bone density exam: 5 years. <Electronically signed by Cliff Interiano > 09/17/20 [id number]
== END ==
LOC: M WHC 12:42
PROVIDERS: ATTEND Family Medicine
DX: Z12.31 Encounter for screening mammogram for malignant neoplasm of breast (principal); M85.80 Other specified disorders of bone density and structure, unspecified site; Z78.0 Asymptomatic menopausal state

== ENCOUNTER → 2021-01-13 | Outpatient (CLI) | payer MEDICARE ==
[~2021-01-13] MED LIST changes: -KLOR10TA76 PO; +POTA-136 PO
[2021-01-13 15:28] LABS: BASO % 0.7 % (0.0-1.0); EOS # 0.1 10^3/uL (0.0-0.5); EOS % 1.7 % (0.0-3.0); HEMATOCRIT 41.3 % (36.0-47.0); HEMATOCRIT 42.2 % (36.0-47.0); HEMOGLOBIN 13.9 g/dl (12.0-15.5); LYMPH # 1.2 10^3/uL (1.5-5.0); MEAN CORPUSCULAR HEMOGLOBIN 31.9 pg (27.0-33.0); MEAN CORPUSCULAR HGB CONC 32.9 g/dl (32.0-36.5); MEAN CORPUSCULAR VOLUME 96.8 fl (80.0-96.0); MONO # 0.6 10^3/uL (0.0-0.8); MONO % 10.3 % (2.0-8.0); NEUTROPHILS # 3.9 10^3/uL (1.5-8.5); NEUTROPHILS % 65.8 % (36.0-66.0); PLATELET COUNT, AUTOMATED 237 10^3/uL (150-450); RED BLOOD COUNT 4.36 10^6/uL (4.00-5.40); WHITE BLOOD COUNT 5.9 10^3/uL (4.0-10.0)
[2021-01-13 15:34] LABS: ALT/SGPT 25 U/L (12-78); BILIRUBIN,TOTAL 0.3 MG/DL (0.2-1.0); BLOOD UREA NITROGEN 15 MG/DL (7-18); CALCIUM LEVEL 9.5 MG/DL (8.8-10.2); CARBON DIOXIDE LEVEL 26 MEQ/L (21-32); CHLORIDE LEVEL 108 MEQ/L (98-107); CHOLESTEROL LEVEL 218 MG/DL (<200); CHOLESTEROL RISK RATIO 2.564 (<5); FERRITIN 343 NG/ML (8-252); GLOMERULAR FILTRATION RATE > 60.0 (>39); GLUCOSE, FASTING 108 MG/DL (70-100); HDL CHOLESTEROL 85 MG/DL (>40); LDL CHOLESTEROL 81 MG/DL (<100); MAGNESIUM LEVEL 1.8 MG/DL (1.8-2.4); NON-HDL-C 133 MG/DL; NT-PRO BNP 2402 PG/ML (<125); POTASSIUM SERUM 4.2 MEQ/L (3.5-5.1); SODIUM LEVEL 139 MEQ/L (136-145); TOTAL PROTEIN 7.6 GM/DL (6.4-8.2); TRIGLYCERIDES LEVEL 260 MG/DL (<150)
[2021-01-13 15:42] LABS: VITAMIN B12 LEVEL 552 PG/ML (247-911)
== END ==
LOC: M PLALAB 13:18
PROVIDERS: ATTEND Family Medicine
DX: D75.89 Other specified diseases of blood and blood-forming organs (principal); I50.32 Chronic diastolic (congestive) heart failure; E78.2 Mixed hyperlipidemia

== ENCOUNTER → 2021-05-17 | Outpatient (CLI) | payer MEDICARE ==
[~2021-05-17] MED LIST changes: +POTA-151 PO; -POTA20TA6 PO
[2021-05-17 13:29] LABS: BASO % 0.7 % (0.0-1.0); EOS # 0.1 10^3/uL (0.0-0.5); EOS % 2.5 % (0.0-3.0); HEMATOCRIT 39.1 % (36.0-47.0); LYMPH # 1.1 10^3/uL (1.5-5.0); LYMPH % 27.2 % (24.0-44.0); MEAN CORPUSCULAR HEMOGLOBIN 31.5 pg (27.0-33.0); MEAN CORPUSCULAR HGB CONC 33.2 g/dl (32.0-36.5); MEAN CORPUSCULAR VOLUME 94.7 fl (80.0-96.0); MONO # 0.4 10^3/uL (0.0-0.8); MONO % 9.6 % (2.0-8.0); NEUTROPHILS # 2.4 10^3/uL (1.5-8.5); NEUTROPHILS % 59.8 % (36.0-66.0); PLATELET COUNT, AUTOMATED 223 10^3/uL (150-450); RED BLOOD COUNT 4.13 10^6/uL (4.00-5.40); WHITE BLOOD COUNT 4.1 10^3/uL (4.0-10.0)
[2021-05-17 14:02] LABS: ERYTHROCYTE SEDIMENTATION RATE 35 mm/hr (0-30)
[2021-05-17 16:15] LABS: ALBUMIN 3.7 GM/DL (3.2-5.2); ALT/SGPT 31 U/L (12-78); BILIRUBIN,TOTAL 0.2 MG/DL (0.2-1.0); BLOOD UREA NITROGEN 23 MG/DL (7-18); C REACTIVE PROTEIN QUANTITATIV 0.68 MG/DL (0.00-0.30); CARBON DIOXIDE LEVEL 26 MEQ/L (21-32); CHLORIDE LEVEL 109 MEQ/L (98-107); CREATININE FOR GFR 0.89 MG/DL (0.55-1.30); FERRITIN 314 NG/ML (8-252); FREE T4 0.92 NG/DL (0.76-1.46); GLOMERULAR FILTRATION RATE > 60.0 (>39); GLUCOSE, FASTING 88 MG/DL (70-100); MAGNESIUM LEVEL 2.2 MG/DL (1.8-2.4); POTASSIUM SERUM 4.5 MEQ/L (3.5-5.1); SODIUM LEVEL 139 MEQ/L (136-145); TOTAL PROTEIN 7.2 GM/DL (6.4-8.2)
[2021-05-17 16:19] LABS: PTH INTACT 70.2 PG/ML (18.5-88.0); TOTAL 25(OH) VITAMIN D 41.5 NG/ML (30.0-100.0)
[2021-05-17 19:09] LABS: HEMOGLOBIN A1c 5.3 %
== END ==
LOC: M PLALAB 11:50
PROVIDERS: ATTEND Family Medicine
DX: I10 Essential (primary) hypertension (principal); D50.0 Iron deficiency anemia secondary to blood loss (chronic); E78.2 Mixed hyperlipidemia

== ENCOUNTER → 2021-07-08 | Outpatient (CLI) | payer MEDICARE | LOC: M RAD 11:19 | PROVIDERS: ATTEND Physician Assistant | DX: R14.3 Flatulence (principal); K21.9 Gastro-esophageal reflux disease without esophagitis; K51.90 Ulcerative colitis, unspecified, without complications ==

== ENCOUNTER → 2021-09-28 | Outpatient (CLI) | payer MEDICARE | LOC: M WHC 11:27 | PROVIDERS: ATTEND Family Medicine | DX: Z12.31 Encounter for screening mammogram for malignant neoplasm of breast (principal) ==

== ENCOUNTER → 2021-11-23 | Outpatient (CLI) | payer MEDICARE ==
[2021-11-23 15:48] LABS: BASO % 0.6 % (0.0-1.0); EOS # 0.1 10^3/uL (0.0-0.5); EOS % 2.2 % (0.0-3.0); HEMATOCRIT 39.5 % (36.0-47.0); HEMOGLOBIN 12.8 g/dl (12.0-15.5); LYMPH # 1.1 10^3/uL (1.5-5.0); LYMPH % 20.8 % (24.0-44.0); MEAN CORPUSCULAR HEMOGLOBIN 31.4 pg (27.0-33.0); MEAN CORPUSCULAR HGB CONC 32.4 g/dl (32.0-36.5); MEAN CORPUSCULAR VOLUME 96.8 fl (80.0-96.0); MONO # 0.5 10^3/uL (0.0-0.8); MONO % 9.6 % (2.0-8.0); NEUTROPHILS # 3.4 10^3/uL (1.5-8.5); NEUTROPHILS % 66.4 % (36.0-66.0); PLATELET COUNT, AUTOMATED 216 10^3/uL (150-450); RED BLOOD COUNT 4.08 10^6/uL (4.00-5.40); WHITE BLOOD COUNT 5.1 10^3/uL (4.0-10.0)
[2021-11-23 16:08] LABS: ALBUMIN 3.8 GM/DL (3.2-5.2); ALT/SGPT 27 U/L (12-78); BILIRUBIN,TOTAL 0.3 MG/DL (0.2-1.0); BLOOD UREA NITROGEN 18 MG/DL (7-18); CALCIUM LEVEL 9.1 MG/DL (8.8-10.2); CARBON DIOXIDE LEVEL 26 MEQ/L (21-32); CHLORIDE LEVEL 107 MEQ/L (98-107); CREATININE FOR GFR 0.82 MG/DL (0.55-1.30); FERRITIN 278 NG/ML (8-252); GLOMERULAR FILTRATION RATE > 60.0 (>39); GLUCOSE, FASTING 94 MG/DL (70-100); MAGNESIUM LEVEL 1.8 MG/DL (1.8-2.4); NT-PRO BNP 1891 PG/ML (<125); SODIUM LEVEL 137 MEQ/L (136-145)
[2021-11-25 05:07] LABS: APOLIPOPROTEIN B/A-1 RATIO 0.5 ratio (0.0-0.6)
== END ==
LOC: M PLALAB 12:17
PROVIDERS: ATTEND Family Medicine
DX: E78.2 Mixed hyperlipidemia (principal); D50.0 Iron deficiency anemia secondary to blood loss (chronic); I10 Essential (primary) hypertension

== ENCOUNTER → 2022-01-04 | Outpatient (CLI) | payer MEDICARE ==
[2022-01-04 17:20] LABS: HEMATOCRIT 36.5 % (36.0-47.0); MEAN CORPUSCULAR HEMOGLOBIN 31.5 pg (27.0-33.0); MEAN CORPUSCULAR HGB CONC 32.9 g/dl (32.0-36.5); MEAN CORPUSCULAR VOLUME 95.8 fl (80.0-96.0); PLATELET COUNT, AUTOMATED 235 10^3/uL (150-450); RED BLOOD COUNT 3.81 10^6/uL (4.00-5.40); WHITE BLOOD COUNT 5.2 10^3/uL (4.0-10.0)
[2022-01-04 18:07] LABS: ERYTHROCYTE SEDIMENTATION RATE 30 mm/hr (0-30)
[2022-01-04 18:27] LABS: ALBUMIN 3.7 GM/DL (3.2-5.2); ALT/SGPT 23 U/L (12-78); BILIRUBIN,TOTAL 0.2 MG/DL (0.2-1.0); BLOOD UREA NITROGEN 19 MG/DL (7-18); C REACTIVE PROTEIN QUANTITATIV 0.64 MG/DL (0.00-0.30); CALCIUM LEVEL 8.6 MG/DL (8.8-10.2); CARBON DIOXIDE LEVEL 25 MEQ/L (21-32); CHLORIDE LEVEL 106 MEQ/L (98-107); CREATININE FOR GFR 0.83 MG/DL (0.55-1.30); GLOMERULAR FILTRATION RATE > 60.0 (>39); GLUCOSE, FASTING 86 MG/DL (70-100); MAGNESIUM LEVEL 1.9 MG/DL (1.8-2.4); POTASSIUM SERUM 4.9 MEQ/L (3.5-5.1); SODIUM LEVEL 137 MEQ/L (136-145); TOTAL PROTEIN 7.1 GM/DL (6.4-8.2)
[2022-01-04 19:11] LABS: TOTAL 25(OH) VITAMIN D 45.7 NG/ML (30.0-100.0)
== END ==
LOC: M PLALAB 14:13
PROVIDERS: ATTEND Physician Assistant
DX: K51.90 Ulcerative colitis, unspecified, without complications (principal); E55.9 Vitamin D deficiency, unspecified

== ENCOUNTER → 2022-05-16 | Outpatient (CLI) | payer MEDICARE ==
[2022-05-16 15:38] LABS: BASO % 0.7 % (0.0-1.0); EOS # 0.1 10^3/uL (0.0-0.5); HEMATOCRIT 39.4 % (36.0-47.0); HEMOGLOBIN 12.6 g/dl (12.0-15.5); LYMPH # 1.2 10^3/uL (1.5-5.0); LYMPH % 22.5 % (24.0-44.0); MEAN CORPUSCULAR HEMOGLOBIN 30.7 pg (27.0-33.0); MEAN CORPUSCULAR VOLUME 96.1 fl (80.0-96.0); MONO # 0.5 10^3/uL (0.0-0.8); MONO % 8.5 % (2.0-8.0); NEUTROPHILS # 3.7 10^3/uL (1.5-8.5); NEUTROPHILS % 66.1 % (36.0-66.0); PLATELET COUNT, AUTOMATED 224 10^3/uL (150-450); WHITE BLOOD COUNT 5.5 10^3/uL (4.0-10.0)
[2022-05-16 17:12] LABS: ALBUMIN 3.7 G/DL (3.2-5.2); ALKALINE PHOSPHATASE 74 U/L (46-116); ALT/SGPT 26 U/L (7.0-40); AST/SGOT 26 U/L (<34); BILIRUBIN,TOTAL 0.4 MG/DL (0.3-1.2); BLOOD UREA NITROGEN 18 MG/DL (9-23); CALCIUM LEVEL 8.8 MG/DL (8.3-10.6); CARBON DIOXIDE LEVEL 26 MMOL/L (20-31); CHLORIDE LEVEL 106 MMOL/L (98-107); CREATININE FOR GFR 0.82 MG/DL (0.55-1.30); FERRITIN 213.3 NG/ML (7.3-270.7); GLOMERULAR FILTRATION RATE > 60.0 (>39); GLUCOSE, FASTING 93 MG/DL (74-106); POTASSIUM SERUM 4.2 MMOL/L (3.5-5.1); SODIUM LEVEL 139 MMOL/L (136-145); TOTAL PROTEIN 7.1 G/DL (5.7-8.2); VITAMIN B12 LEVEL 454 PG/ML (211-911)
== END ==
LOC: M PLALAB 11:54
PROVIDERS: ATTEND Family Medicine
DX: E55.9 Vitamin D deficiency, unspecified (principal); D75.89 Other specified diseases of blood and blood-forming organs; I11.0 Hypertensive heart disease with heart failure; E78.2 Mixed hyperlipidemia; I50.32 Chronic diastolic (congestive) heart failure

== ENCOUNTER → 2022-07-04 | Outpatient (CLI) | payer MEDICARE ==
[2022-07-04 13:53] LABS: HEMATOCRIT 38.4 % (36.0-47.0); HEMOGLOBIN 12.5 g/dl (12.0-15.5); MEAN CORPUSCULAR HEMOGLOBIN 30.9 pg (27.0-33.0); MEAN CORPUSCULAR HGB CONC 32.6 g/dl (32.0-36.5); PLATELET COUNT, AUTOMATED 231 10^3/uL (150-450); RED BLOOD COUNT 4.04 10^6/uL (4.00-5.40); WHITE BLOOD COUNT 5.4 10^3/uL (4.0-10.0)
[2022-07-04 14:16] LABS: ERYTHROCYTE SEDIMENTATION RATE 44 mm/hr (0-30)
[2022-07-04 14:19] LABS: ALBUMIN 3.9 G/DL (3.2-5.2); ALKALINE PHOSPHATASE 83 U/L (46-116); ALT/SGPT 17 U/L (7.0-40); AST/SGOT 24 U/L (<34); BILIRUBIN,TOTAL 0.5 MG/DL (0.3-1.2); BLOOD UREA NITROGEN 22 MG/DL (9-23); CALCIUM LEVEL 8.7 MG/DL (8.3-10.6); CARBON DIOXIDE LEVEL 23 MMOL/L (20-31); CHLORIDE LEVEL 107 MMOL/L (98-107); CREATININE FOR GFR 0.94 MG/DL (0.55-1.30); GLOMERULAR FILTRATION RATE > 60.0 (>39); GLUCOSE, FASTING 92 MG/DL (74-106); POTASSIUM SERUM 4.6 MMOL/L (3.5-5.1); SODIUM LEVEL 136 MMOL/L (136-145); TOTAL PROTEIN 7.2 G/DL (5.7-8.2)
== END ==
LOC: M PLALAB 11:59
PROVIDERS: ATTEND Physician Assistant
DX: K51.90 Ulcerative colitis, unspecified, without complications (principal)

== ENCOUNTER → 2023-06-12 | Outpatient (CLI) | payer MEDICARE ==
[2023-06-12 16:11] LABS: BASO % 0.4 % (0.0-1.0); EOS # 0.1 10^3/uL (0.0-0.5); HEMATOCRIT 39.7 % (36.0-47.0); HEMOGLOBIN 12.9 g/dl (12.0-15.5); LYMPH # 1.1 10^3/uL (1.5-5.0); LYMPH % 22.4 % (24.0-44.0); MEAN CORPUSCULAR HEMOGLOBIN 31.7 pg (27.0-33.0); MEAN CORPUSCULAR HGB CONC 32.5 g/dl (32.0-36.5); MEAN CORPUSCULAR VOLUME 97.5 fl (80.0-96.0); MONO # 0.4 10^3/uL (0.0-0.8); MONO % 7.5 % (2.0-8.0); NEUTROPHILS # 3.5 10^3/uL (1.5-8.5); NEUTROPHILS % 67.5 % (36.0-66.0); PLATELET COUNT, AUTOMATED 205 10^3/uL (150-450); RED BLOOD COUNT 4.07 10^6/uL (4.00-5.40); WHITE BLOOD COUNT 5.1 10^3/uL (4.0-10.0)
[2023-06-12 16:31] LABS: HEMOGLOBIN A1c 5.1 % (4.0-6.0)
[2023-06-12 16:32] LABS: THYROID STIMULATING HORMONE 1.538 uIU/ML (0.55-4.78)
[2023-06-12 16:33] LABS: ALBUMIN 3.9 G/DL (3.2-5.2); ALKALINE PHOSPHATASE 79 U/L (46-116); ALT/SGPT 30 U/L (7.0-40); AST/SGOT 21 U/L (<34); BILIRUBIN,TOTAL 0.4 MG/DL (0.3-1.2); BLOOD UREA NITROGEN 21 MG/DL (9-23); CALCIUM LEVEL 8.8 MG/DL (8.3-10.6); CARBON DIOXIDE LEVEL 24 MMOL/L (20-31); CHLORIDE LEVEL 111 MMOL/L (98-107); CHOLESTEROL LEVEL 177 MG/DL (<200); CREATININE FOR GFR 0.88 MG/DL (0.55-1.30); FREE T4 1.14 NG/DL (0.89-1.76); GLOMERULAR FILTRATION RATE > 60.0 (>39); GLUCOSE, FASTING 95 MG/DL (74-106); HDL CHOLESTEROL 70.6 MG/DL (>40); NON-HDL-C 106.4 MG/DL; POTASSIUM SERUM 4.4 MMOL/L (3.5-5.1); SODIUM LEVEL 140 MMOL/L (136-145); TOTAL PROTEIN 6.8 G/DL (5.7-8.2); TRIGLYCERIDES LEVEL 122 MG/DL (<150)
== END ==
LOC: M PLALAB 12:16
PROVIDERS: ATTEND Family Medicine
DX: E78.2 Mixed hyperlipidemia (principal); D75.89 Other specified diseases of blood and blood-forming organs; I50.32 Chronic diastolic (congestive) heart failure; Z79.899 Other long term (current) drug therapy

== ENCOUNTER → 2023-07-11 | Outpatient (CLI) | payer MEDICARE ==
[2023-07-11 18:07] LABS: HEMATOCRIT 38.5 % (36.0-47.0); HEMOGLOBIN 12.4 g/dl (12.0-15.5); MEAN CORPUSCULAR HGB CONC 32.2 g/dl (32.0-36.5); MEAN CORPUSCULAR VOLUME 96.3 fl (80.0-96.0); PLATELET COUNT, AUTOMATED 227 10^3/uL (150-450); WHITE BLOOD COUNT 5.7 10^3/uL (4.0-10.0)
[2023-07-11 18:18] LABS: ERYTHROCYTE SEDIMENTATION RATE 17 mm/hr (0-30)
[2023-07-11 18:26] LABS: C REACTIVE PROTEIN QUANTITATIV 0.6 MG/DL (<1.0)
[2023-07-11 18:50] LABS: ALBUMIN 3.8 G/DL (3.2-5.2); BILIRUBIN,TOTAL 0.4 MG/DL (0.3-1.2); CREATININE FOR GFR 0.98 MG/DL (0.55-1.30); GLOMERULAR FILTRATION RATE 58.7 (>39); POTASSIUM SERUM 4.2 MMOL/L (3.5-5.1); TOTAL PROTEIN 6.7 G/DL (5.7-8.2)
== END ==
LOC: M PLALAB 15:21
PROVIDERS: ATTEND Physician Assistant
DX: K51.90 Ulcerative colitis, unspecified, without complications (principal)

== ENCOUNTER 2023-09-04 06:08 | Day surgery (SDC) | payer MEDICARE ==
[~2023-09-04] VITALS: Ht 162.6 cm; Wt 72.8 kg
[~2023-09-04 06:08] MED LIST changes: +AMIO200T49 PO; +FEXO-13 PO; +LISI10TA22 PO; +MESA0.37 PO; +METO1TAB33 PO; +OMEP40CA5 PO; +SPIR-10 PO; +THERTAB52 PO
[2023-09-04] MEDS ORDERED: LR 1,000 ML IV SCH (06:35)
[2023-09-04] MEDS ORDERED: LIDOCAINE 2% 100MG/5ML SDV (FOR ANES.) As Ordered ONE (07:02)
[2023-09-04] MEDS ORDERED: ONDANSETRON 4MG 2ML VIAL As Ordered ONE (07:02)
[2023-09-04] MEDS ORDERED: propofoL 200 MG/20 ML VIAL As Ordered ONE (07:02)
[2023-09-04 08:12] VITALS: BP 126/66; TEMP 96.9; O2SAT 98
== END 2023-09-04 08:24 | disposition home or self-care (01) ==
LOC: M SDC 06:08
PROVIDERS: ATTEND Internal Medicine Cardiovascular Disease
DX: I48.0 Paroxysmal atrial fibrillation (principal); K52.9 Noninfective gastroenteritis and colitis, unspecified; I10 Essential (primary) hypertension; K57.92 Diverticulitis of intestine, part unspecified, without perforation or abscess without bleeding; K21.9 Gastro-esophageal reflux disease without esophagitis; Z79.01 Long term (current) use of anticoagulants; Z79.899 Other long term (current) drug therapy; Z88.2 Allergy status to sulfonamides; Z88.1 Allergy status to other antibiotic agents
CPT/HCPCS: 92960; 93005; J2405

== ENCOUNTER → 2023-10-09 | Outpatient (CLI) | payer MEDICARE | LOC: M WHC 12:03 | PROVIDERS: ATTEND Family Medicine | DX: Z12.31 Encounter for screening mammogram for malignant neoplasm of breast (principal) ==

== ENCOUNTER → 2023-10-09 | Outpatient (CLI) | payer MEDICARE ==
[2023-10-09 16:02] LABS: CALCIUM LEVEL 9.4 MG/DL (8.3-10.6); CREATININE FOR GFR 1.01 MG/DL (0.55-1.30); GLOMERULAR FILTRATION RATE 56.7 (>39); THYROID STIMULATING HORMONE 2.377 uIU/ML (0.55-4.78)
== END ==
LOC: M PLALAB 12:52
PROVIDERS: ATTEND Nurse Practitioner Acute Care
DX: I48.0 Paroxysmal atrial fibrillation (principal)

== ENCOUNTER → 2023-10-17 | Outpatient (CLI) | payer MEDICARE | LOC: M WHC 12:43 | PROVIDERS: ATTEND Family Medicine | DX: R92.2 Inconclusive mammogram (principal); N60.02 Solitary cyst of left breast ==

== ENCOUNTER → 2024-01-23 | Outpatient (CLI) | payer MEDICARE ==
[2024-01-23 15:04] LABS: ALBUMIN 3.6 G/DL (3.2-5.2); ALKALINE PHOSPHATASE 74 U/L (35-104); ALT/SGPT 25 U/L (7.0-40); AST/SGOT 23 U/L (<34); BILIRUBIN,TOTAL 0.3 MG/DL (0.3-1.2); BLOOD UREA NITROGEN 17 MG/DL (9-23); CALCIUM LEVEL 9.2 MG/DL (8.3-10.6); CARBON DIOXIDE LEVEL 26 MMOL/L (20-31); CHLORIDE LEVEL 107 MMOL/L (98-107); CREATININE FOR GFR 0.93 MG/DL (0.55-1.30); GLOMERULAR FILTRATION RATE > 60.0 (>39); GLUCOSE, FASTING 88 MG/DL (74-106); POTASSIUM SERUM 4.4 MMOL/L (3.5-5.1); SODIUM LEVEL 140 MMOL/L (136-145); TOTAL PROTEIN 7.2 G/DL (5.7-8.2)
== END ==
LOC: M PLALAB 11:59
PROVIDERS: ATTEND Nurse Practitioner Acute Care
DX: I50.32 Chronic diastolic (congestive) heart failure (principal)

== ENCOUNTER → 2024-04-03 | Outpatient (CLI) | payer MEDICARE ==
[2024-04-03 14:04] LABS: HEMATOCRIT 38.9 % (36.0-47.0); HEMOGLOBIN 12.8 g/dl (12.0-15.5); LYMPH # 0.8 10^3/uL (1.5-5.0); LYMPH % 19.5 % (24.0-44.0); MEAN CORPUSCULAR HEMOGLOBIN 31.2 pg (27.0-33.0); MEAN CORPUSCULAR HGB CONC 32.9 g/dl (32.0-36.5); MEAN CORPUSCULAR VOLUME 94.9 fl (80.0-96.0); MONO # 0.4 10^3/uL (0.0-0.8); MONO % 9.6 % (2.0-8.0); NEUTROPHILS # 2.9 10^3/uL (1.5-8.5); NEUTROPHILS % 70.7 % (36.0-66.0); PLATELET COUNT, AUTOMATED 202 10^3/uL (150-450); WHITE BLOOD COUNT 4.1 10^3/uL (4.0-10.0)
[2024-04-03 14:31] LABS: FERRITIN 136.5 NG/ML (7.3-270.7)
[2024-04-03 14:32] LABS: THYROID STIMULATING HORMONE 1.449 uIU/ML (0.55-4.78)
[2024-04-03 14:34] LABS: FREE T4 1.34 NG/DL (0.89-1.76); HEMOGLOBIN A1c 4.8 % (4.0-6.0)
== END ==
LOC: M PLALAB 11:48
PROVIDERS: ATTEND Family Medicine
DX: I50.32 Chronic diastolic (congestive) heart failure (principal)

== ENCOUNTER → 2024-04-22 | Outpatient (CLI) | payer MEDICARE ==
[2024-04-22 15:29] LABS: ALBUMIN 3.8 G/DL (3.2-5.2); ALKALINE PHOSPHATASE 68 U/L (35-104); ALT/SGPT 17 U/L (7.0-40); AST/SGOT 19 U/L (<34); BILIRUBIN,TOTAL 0.4 MG/DL (0.3-1.2); BLOOD UREA NITROGEN 23 MG/DL (9-23); CARBON DIOXIDE LEVEL 26 MMOL/L (20-31); CHLORIDE LEVEL 106 MMOL/L (98-107); CREATININE FOR GFR 0.92 MG/DL (0.55-1.30); GLOMERULAR FILTRATION RATE > 60.0 (>39); GLUCOSE, FASTING 81 MG/DL (74-106); POTASSIUM SERUM 4.5 MMOL/L (3.5-5.1); SODIUM LEVEL 140 MMOL/L (136-145); TOTAL PROTEIN 7.3 G/DL (5.7-8.2)
== END ==
LOC: M PLALAB 12:34
PROVIDERS: ATTEND Nurse Practitioner Acute Care
DX: I50.32 Chronic diastolic (congestive) heart failure (principal)

== ENCOUNTER → 2024-07-12 | Outpatient (CLI) | payer MEDICARE ==
[2024-07-12 13:56] LABS: HEMATOCRIT 41.4 % (36.0-47.0); HEMOGLOBIN 13.5 g/dl (12.0-15.5); MEAN CORPUSCULAR HEMOGLOBIN 31.1 pg (27.0-33.0); MEAN CORPUSCULAR HGB CONC 32.6 g/dl (32.0-36.5); MEAN CORPUSCULAR VOLUME 95.4 fl (80.0-96.0); PLATELET COUNT, AUTOMATED 212 10^3/uL (150-450); RED BLOOD COUNT 4.34 10^6/uL (4.00-5.40); WHITE BLOOD COUNT 4.9 10^3/uL (4.0-10.0)
[2024-07-12 14:12] LABS: ERYTHROCYTE SEDIMENTATION RATE 39 mm/hr (0-30)
[2024-07-12 14:16] LABS: ALBUMIN 3.7 G/DL (3.2-5.2); BILIRUBIN,TOTAL 0.4 MG/DL (0.3-1.2); C REACTIVE PROTEIN QUANTITATIV 1.29 MG/DL (<1.0); CALCIUM LEVEL 8.9 MG/DL (8.3-10.6); CREATININE FOR GFR 0.88 MG/DL (0.55-1.30); GLOMERULAR FILTRATION RATE 67.6 (>39); POTASSIUM SERUM 4.1 MMOL/L (3.5-5.1)
== END ==
LOC: M PLALAB 11:21
PROVIDERS: ATTEND Physician Assistant
DX: K51.90 Ulcerative colitis, unspecified, without complications (principal); K21.9 Gastro-esophageal reflux disease without esophagitis

== ENCOUNTER → 2024-10-10 | Outpatient (CLI) | payer MEDICARE ==
[~2024-10-10] MED LIST changes: -AMIO200T49 PO; +AMIO200T54 PO
== END ==
LOC: M WHC 10:50
PROVIDERS: ATTEND Family Medicine
DX: Z12.31 Encounter for screening mammogram for malignant neoplasm of breast (principal); Z13.820 Encounter for screening for osteoporosis; Z78.0 Asymptomatic menopausal state

== ENCOUNTER → 2025-01-31 | Outpatient (CLI) | payer MEDICARE ==
[2025-01-31 15:40] LABS: BASO # 0.0 10^3/uL (0.0-0.2); BASO % 0.2 % (0.0-1.0); EOS # 0.1 10^3/uL (0.0-0.5); EOS % 0.6 % (0.0-3.0); LYMPH # 0.8 10^3/uL (1.5-5.0); LYMPH % 10.4 % (24.0-44.0); MONO # 0.7 10^3/uL (0.0-0.8); MONO % 8.5 % (2.0-8.0); NEUTROPHILS # 6.4 10^3/uL (1.5-8.5); NEUTROPHILS % 80.1 % (36.0-66.0); PLATELET COUNT, AUTOMATED 368 10^3/uL (150-450)
[2025-01-31 15:54] LABS: ESTIMATED AVERAGE GLUCOSE 108.0 MG/DL (60-110)
[2025-01-31 16:17] LABS: ALT/SGPT 83 U/L (7.0-40); AST/SGOT 81 U/L (<34); CALCIUM LEVEL 8.7 MG/DL (8.3-10.6); CARBON DIOXIDE LEVEL 24 MMOL/L (20-31); CHLORIDE LEVEL 102 MMOL/L (98-107); CHOLESTEROL LEVEL 132 MG/DL (<200); CHOLESTEROL RISK RATIO 3.46 (<5); CREATININE FOR GFR 1.33 MG/DL (0.55-1.30); GLOMERULAR FILTRATION RATE 41.2 (>39); LDL CHOLESTEROL 67.7 MG/DL (<100); MAGNESIUM LEVEL 1.9 MG/DL (1.8-2.4); NON-HDL-C 93.9 MG/DL; POTASSIUM SERUM 3.4 MMOL/L (3.5-5.1); PTH INTACT 143.7 PG/ML (18.5-88.0); SODIUM LEVEL 140 MMOL/L (136-145); TRIGLYCERIDES LEVEL 131 MG/DL (<150)
[2025-01-31 16:19] LABS: FREE T4 1.88 NG/DL (0.89-1.76); TOTAL 25(OH) VITAMIN D 93.8 NG/ML (20.0-100.0)
[2025-01-31 16:22] LABS: VITAMIN B12 LEVEL > 2000 PG/ML (211-911)
== END ==
LOC: M PLALAB 13:37
PROVIDERS: ATTEND Family Medicine
DX: D50.9 Iron deficiency anemia, unspecified (principal); E55.9 Vitamin D deficiency, unspecified; K51.80 Other ulcerative colitis without complications; E78.2 Mixed hyperlipidemia; I11.0 Hypertensive heart disease with heart failure; I50.20 Unspecified systolic (congestive) heart failure; Z79.899 Other long term (current) drug therapy

== ENCOUNTER 2025-02-02 16:19 | Observation (INO) | payer MEDICARE ==
[~2025-02-02] VITALS: Ht 162.6 cm; Wt 68.7 kg
[2025-02-02 17:05] LABS: BASO # 0.0 10^3/uL (0.0-0.2); BASO % 0.5 % (0.0-1.0); EOS # 0.1 10^3/uL (0.0-0.5); EOS % 0.7 % (0.0-3.0); LYMPH # 1.0 10^3/uL (1.5-5.0); LYMPH % 13.7 % (24.0-44.0); MONO # 0.7 10^3/uL (0.0-0.8); MONO % 8.8 % (2.0-8.0); NEUTROPHILS # 5.6 10^3/uL (1.5-8.5); NEUTROPHILS % 76.0 % (36.0-66.0); PLATELET COUNT, AUTOMATED 371 10^3/uL (150-450)
[2025-02-02] MEDS ORDERED: ISOVUE-370 76% 100 ML VIAL As Ordered ONE (17:15)
[2025-02-02 17:35] LABS: ALT/SGPT 72.0 U/L (7.0-40); AST/SGOT 81.0 U/L (<34); CALCIUM LEVEL 9.2 MG/DL (8.3-10.6); CARBON DIOXIDE LEVEL 19.0 MMOL/L (20-31); CHLORIDE LEVEL 102.0 MMOL/L (98-107); CK-MB VALUE MASS 1.4 NG/ML (<3.6); CPK CREATINE PHOSPHOKINASE 69.0 U/L (34-145); CREATININE FOR GFR 1.19 MG/DL (0.55-1.30); GLOMERULAR FILTRATION RATE 47.1 (>39); MB/CK RELATIVE INDEX 2.02 (< OR =4); POTASSIUM SERUM 4.8 MMOL/L (3.5-5.1); SODIUM LEVEL 137.0 MMOL/L (136-145)
[2025-02-02 17:42] LABS: INR 2.3
[2025-02-02] MEDS: FUROSEMIDE 20 MG/2 ML VIAL IV ONE (18:21)
[2025-02-02 18:42] LABS: CK-MB VALUE MASS 1.1 NG/ML (<3.6)
[2025-02-02 18:44] LABS: CPK CREATINE PHOSPHOKINASE 45.0 U/L (34-145); MB/CK RELATIVE INDEX 2.44 (< OR =4)
[2025-02-02] MEDS ORDERED: ACETAMINOPHEN 325 MG TAB PO PRN (20:30)
[2025-02-02] MEDS ORDERED: ONDANSETRON 4MG/2ML VIAL IV PRN (20:30)
[2025-02-02] MEDS ORDERED: MOM 30 ML SUSPENSION UDC PO PRN (20:30)
[2025-02-02] MEDS: APIXABAN 5 MG TAB PO SCH (21:37)
[2025-02-03] MEDS: traZODone 50 MG TAB PO PRN (00:06)
[2025-02-03 00:08] VITALS: BP 126/56; TEMP 98.1; O2SAT 95
[2025-02-03] MEDS: FUROSEMIDE 40 MG/4 ML VIAL IV SCH (00:08)
[2025-02-03] MEDS: IPRATROPIUM 0.5 MG/ALBUTEROL 2.5 MG INH SOL UD 3 ML NEB SCH (01:36)
[2025-02-03] MEDS ORDERED: ALPR0.25 PO (02:40)
[2025-02-03] MEDS ORDERED: FARX1TAB3 PO (02:40)
[2025-02-03] MEDS ORDERED: JARD1TAB PO (02:40)
[2025-02-03] MEDS ORDERED: FURO20TA2 PO (02:40)
[2025-02-03] MEDS: METOPROLOL SUCC. 50 MG *XL* TAB PO SCH (02:43)
[2025-02-03] MEDS ORDERED: VIT1TABL25 PO (02:45)
[2025-02-03] MEDS ORDERED: METO1TAB32 PO (02:45)
[2025-02-03] MEDS ORDERED: HOME MED LIST COMPLETE! XX SCH (02:50)
[2025-02-03 06:06] VITALS: BP 107/68; TEMP 97.6; O2SAT 94
[2025-02-03 07:13] LABS: PLATELET COUNT, AUTOMATED 271 10^3/uL (150-450)
[2025-02-03] MEDS ORDERED: ALPRAZolam 0.25 MG TAB PO PRN (07:20)
[2025-02-03 07:34] LABS: ALT/SGPT 60.0 U/L (7.0-40); AST/SGOT 52.0 U/L (<34); CALCIUM LEVEL 8.8 MG/DL (8.3-10.6); CARBON DIOXIDE LEVEL 25.0 MMOL/L (20-31); CHLORIDE LEVEL 100.0 MMOL/L (98-107); CREATININE FOR GFR 1.28 MG/DL (0.55-1.30); GLOMERULAR FILTRATION RATE 43.2 (>39); MAGNESIUM LEVEL 1.8 MG/DL (1.8-2.4); POTASSIUM SERUM 3.6 MMOL/L (3.5-5.1); SODIUM LEVEL 139.0 MMOL/L (136-145)
[2025-02-03 08:00] VITALS: BP 149/73; TEMP 97.3; O2SAT 98
[2025-02-03] MEDS: OMEPRAZOLE 20MG CAP PO SCH (08:53)
[2025-02-03] MEDS: AMIODARONE 200 MG TAB PO SCH (08:53)
[2025-02-03] MEDS: PANTOPRAZOLE 40MG TAB PO SCH (08:54)
[2025-02-03 10:25] VITALS: BP 112/66
[2025-02-03] MEDS: SPIRONOLACTONE 12.5MG PER 1/2 TABLET PO SCH (10:25)
[2025-02-03] MEDS: FUROSEMIDE 40 MG TAB PO SCH (10:25)
[2025-02-03] MEDS ORDERED: METO1TAB7 PO (10:40)
[2025-02-03] MEDS ORDERED: FURO40TA2 PO (10:40)
[2025-02-03] MEDS ORDERED: LEVO1TAB39 PO (11:29)
== END 2025-02-03 12:18 | disposition home or self-care (01) ==
LOC: M ED 16:19 → M ED INP 16:20 → M MSPAV 23:17
PROVIDERS: ADMIT Internal Medicine; ATTEND Internal Medicine
DX: R06.02 Shortness of breath (principal); I50.23 Acute on chronic systolic (congestive) heart failure; J90 Pleural effusion, not elsewhere classified; J18.9 Pneumonia, unspecified organism; I48.91 Unspecified atrial fibrillation; I11.0 Hypertensive heart disease with heart failure; Z79.01 Long term (current) use of anticoagulants; Z79.899 Other long term (current) drug therapy
CPT/HCPCS: 36415; 71045; 71275; 80047; 80048; 80053; 80076; 82550; 82553; 83735; 83880; 84145; 84443; 84484; 85025; 85027; 85610; 87486; 87581; 87633; 87798; 93005; 93041; 94640; 94760; 96374; 96376; 99285; G0378; J1938; Q9967

== ENCOUNTER 2025-02-10 15:24 | Day surgery (SDC) | payer MEDICARE ==
[~2025-02-10] VITALS: Ht 162.6 cm; Wt 65.7 kg
[~2025-02-10 15:24] MED LIST changes: +ALPR0.25 PO; +FARX1TAB3 PO; +FURO20TA2 PO; +FURO40TA2 PO; +JARD1TAB PO; +LEVO1TAB39 PO; +METO1TAB32 PO; +METO1TAB7 PO; +VIT1TABL25 PO
[2025-02-10] MEDS ORDERED: LR 1,000 ML IV SCH (15:50)
[2025-02-10 18:10] VITALS: BP 119/69; TEMP 97.2; O2SAT 99
== END 2025-02-10 18:35 | disposition home or self-care (01) ==
LOC: M SDC 15:24
PROVIDERS: ATTEND Internal Medicine Cardiovascular Disease
DX: I48.11 Longstanding persistent atrial fibrillation (principal); I50.9 Heart failure, unspecified; I10 Essential (primary) hypertension; K21.9 Gastro-esophageal reflux disease without esophagitis; Z79.01 Long term (current) use of anticoagulants; Z79.899 Other long term (current) drug therapy; Z88.2 Allergy status to sulfonamides; Z88.8 Allergy status to other drugs, medicaments and biological substances

== ENCOUNTER → 2025-02-19 | Outpatient (CLI) | payer MEDICARE ==
[2025-02-19 15:54] LABS: BASO # 0.0 10^3/uL (0.0-0.2); BASO % 0.5 % (0.0-1.0); EOS # 0.1 10^3/uL (0.0-0.5); EOS % 1.0 % (0.0-3.0); LYMPH # 0.7 10^3/uL (1.5-5.0); LYMPH % 12.9 % (24.0-44.0); MONO # 0.5 10^3/uL (0.0-0.8); MONO % 9.0 % (2.0-8.0); NEUTROPHILS # 4.4 10^3/uL (1.5-8.5); NEUTROPHILS % 76.4 % (36.0-66.0); PLATELET COUNT, AUTOMATED 269 10^3/uL (150-450)
[2025-02-19 16:22] LABS: ALT/SGPT 21.0 U/L (7.0-40); AST/SGOT 28.0 U/L (<34); CALCIUM LEVEL 8.7 MG/DL (8.3-10.6); CARBON DIOXIDE LEVEL 29.0 MMOL/L (20-31); CHLORIDE LEVEL 104.0 MMOL/L (98-107); CREATININE FOR GFR 1.15 MG/DL (0.55-1.30); GLOMERULAR FILTRATION RATE 49.1 (>39); MAGNESIUM LEVEL 1.7 MG/DL (1.8-2.4); POTASSIUM SERUM 3.3 MMOL/L (3.5-5.1); SODIUM LEVEL 144.0 MMOL/L (136-145)
[2025-02-19 16:32] LABS: VITAMIN B12 LEVEL 669.0 PG/ML (211-911)
== END ==
LOC: M PLALAB 12:44
PROVIDERS: ATTEND Family Medicine
DX: K51.80 Other ulcerative colitis without complications (principal); I50.20 Unspecified systolic (congestive) heart failure; D50.9 Iron deficiency anemia, unspecified; E55.9 Vitamin D deficiency, unspecified

== ENCOUNTER → 2025-03-04 | Outpatient (CLI) | payer MEDICARE ==
[2025-03-04 14:27] LABS: ALT/SGPT 19.0 U/L (7.0-40); AST/SGOT 23.0 U/L (<34); CALCIUM LEVEL 9.3 MG/DL (8.3-10.6); CARBON DIOXIDE LEVEL 27.0 MMOL/L (20-31); CHLORIDE LEVEL 100.0 MMOL/L (98-107); CREATININE FOR GFR 1.18 MG/DL (0.55-1.30); GLOMERULAR FILTRATION RATE 47.6 (>39); MAGNESIUM LEVEL 1.7 MG/DL (1.8-2.4); POTASSIUM SERUM 3.5 MMOL/L (3.5-5.1); SODIUM LEVEL 138.0 MMOL/L (136-145)
== END ==
LOC: M PLALAB 09:32
PROVIDERS: ATTEND Family Medicine
DX: I50.20 Unspecified systolic (congestive) heart failure (principal); E55.9 Vitamin D deficiency, unspecified

== ENCOUNTER → 2025-03-15 | Outpatient (CLI) | payer MEDICARE | LOC: M SLEEP 20:00 | PROVIDERS: ATTEND Physician Assistant | DX: G47.33 Obstructive sleep apnea (adult) (pediatric) (principal) ==